=== PATIENT | male | born 1965 | race Caucasian/White ===

== ENCOUNTER 2021-02-08 12:29 | Outpatient (CLI) | payer OTHER, SELFPAY ==
--- NOTE | 2021-02-08 | ECG_ITS ---
Measurements Intervals [place] Rate: 67 P: 74 SD: 114 QRS: 93 QRSD: 113 T: 73 QT: 384 QTc: 407 Interpretive Statements SINUS RHYTHM WITH SHORT SD INTERVAL RIGHT AXIS DEVIATION INTRAVENTRICULAR CONDUCTION DELAY BORDERLINE ECG Electronically Signed On 02-08-2021 13:19:34 CDT by Dante Lee D.O.
[2021-02-08 13:17] LABS: Hematocrit 43.9 % (42.0-52.0); Hemoglobin 14.6 g/dL (14.0-18.0)
[2021-02-08 13:32] LABS: Albumin Level 4.2 g/dL (3.5-5.1); Estimated Glomerular Filt Rate > 60; Glucose 106 mg/dL (65-110)
[2021-02-08 13:42] LABS: Urine Cotinine NEGATIVE
[2021-02-09 03:14] LABS: Hemoglobin A1C 5.9 % (<5.7)
== END 2021-02-08 12:30 | disposition home or self-care (01) ==
PROVIDERS: Visit Provider Orthopaedic Surgery
DX: Z01.818 Encounter for other preprocedural examination (principal); M16.12 Unilateral primary osteoarthritis, left hip; I45.9 Conduction disorder, unspecified
CPT/HCPCS: 80307; 82040; 82565; 82947; 83036; 85014; 85018; 93005

== ENCOUNTER 2021-03-09 07:44 | Outpatient (CLI) | payer OTHER, SELFPAY ==
[2021-03-09 09:24] LABS: Basophils Absolute Auto 0.1 K/mm3 (0.0-0.1); Eosinophils Absolute Auto 0.3 K/mm3 (0-0.3); Eosinophils Percent Auto 3.3 % (0-4.4); Hematocrit 45.2 % (42.0-52.0); Immature Granulocyte Absolute 0.02 K/mm3 (0.00-0.031); Immature Granulocyte Percent A 0.3 % (0-0.5); Lymphocytes Absolute Auto 2.19 K/mm3 (0.9-3.2); Lymphocytes Percent Auto 28.6 % (18.3-44.2); Mean Corpuscular HGB Conc 33.2 g/dl (32-36); Mean Corpuscular Hemoglobin 33.5 pg (26-34); Mean Corpuscular Volume 100.9 fl (80-100); Mean Platelet Volume 9.2 fl (7.4-10.4); Monocytes Absolute Auto 0.4 K/mm3 (0.1-0.6); Monocytes Percent Auto 5.5 % (2.6-8.5); Neutrophils Absolute Auto 4.7 K/mm3 (1.3-6.7); Neutrophils Percent Auto 61.3 % (45.5-73.1); Platelet Count Result 196 k/mm3 (150-375); Red Blood Count 4.48 M/mm3 (4.6-6.20); Red Cell Distribution Width 12.5 % (11.5-14.5); White Blood Count 7.7 K/mm3 (4.5-10.0)
== END 2021-03-09 07:45 | disposition home or self-care (01) ==
LOC: ANHSURGERY 07:50
PROVIDERS: Visit Provider Orthopaedic Surgery
DX: Z01.818 Encounter for other preprocedural examination (principal); M16.12 Unilateral primary osteoarthritis, left hip
CPT/HCPCS: 36415; 85025; 87081

== ENCOUNTER → 2021-04-02 00:34 | Outpatient (CLI) | payer OTHER, SELFPAY ==
[2021-04-02 17:30] LABS: SARS-CoV-2 RNA PCR Negative
== END ==
PROVIDERS: Visit Provider Orthopaedic Surgery
DX: Z01.812 Encounter for preprocedural laboratory examination (principal); Z20.822 Contact with and (suspected) exposure to COVID-19
CPT/HCPCS: C9803; U0003; U0005

== ENCOUNTER 2021-04-05 00:14 | Day surgery (SDC) | payer OTHER, SELFPAY ==
[2021-03-09 08:41] VITALS: BP 136/71; PULSE 67; RESP 16; TEMP 36.7; O2SAT 96
--- NOTE | 2021-04-04 13:50 | P.PNAN_ITS ---
Anes - Initial Pre Proc Eval Procedure: Operation Date: 04/05/21 07:30 Proposed Procedures p Left Total Hip Arthroplasty - Geovani Edge MD Date/Time: 04/04/21 13:50 Surgeon: Geovani Edge MD Pre Op Diagnosis: primary OA lef thip Patient Data Age: 55 Gender: M Height: 1.82 m Weight: 99.1 kg Last Vital Signs Temp 36.7 C 03/09/21 08:41 Pulse 67 03/09/21 08:41 Resp 16 03/09/21 08:41 BP 136/71 03/09/21 08:41 Pulse Ox 96 03/09/21 08:41 Allergies Allergy/AdvReac Type Severity Reaction Status Date / Time hydrocodone [From Vicodin] AdvReac Severe Nausea Verified 04/05/21 06:31 morphine AdvReac Severe Nausea Verified 04/05/21 06:31 oxycodone AdvReac Severe Nausea Verified 04/05/21 06:31 Home Medications Medication Instructions Recorded Confirmed Type diphenhydramine-acetaminophen 2 tablet PO HS PRN 03/09/21 04/05/21 History [Tylenol PM Extra Strength] Patient hx anesthesia problems: none Family hx anesthesia problems: none Results Review: All pre-operative results and documents have been reviewed as part of the pre-operative evaluation. [facility] Past Medical History Medical History Arthritis of left hip History of nicotine dependence Injury of back of head (~2000) Obesity Smoker Social History Social History Smoking packs per day: 1 Smoking cigarettes per day: 20.0 Years smoked: 20 Smoking pack-years: 20.00 Smoking status: Current every day smoker Tobacco type: cigarettes Smoking end date: 01/15/21 Additional smoking assessment comments: DENIES ANY FORM OF TOBACCO USE Alcohol intake: current Drinks per week: 14 Alcohol use details: BEER Substance use: current Substance use type: marijuana Last use: 03/07/21 Living arrangements: with family Spiritual care concerns: No Anes - Eval Final PreProcedure Day of Procedure 04/04/21 13:50 Patient weight: obese Heart: regular rate and rhythm Lungs: clear to auscultation and normal air movement Airway: Mallampati scale class II Neurological: alert and oriented Last oral intake: >/= 8 hours ASA classification: III Emergent: no Anesthetic plan: proceed Anesthesia type and monitoring: general ETT Results Review: All pre-operative results and documents have been reviewed as part of the pre-operative evaluation. Informed Consent: The patient's anesthetic plan and its attendant risks and benefits were discussed with the patient/family/POA. Questions were solicited and answers provided to the satisfaction of the patient/family/POA.
[2021-04-05] VITALS (13 sets, daily range): BP systolic 113–156; BP diastolic 59–80; PULSE 61–89; RESP 12–20; TEMP 36.1–36.6; O2SAT 95–100
--- NOTE | ~2021-04-05 | XR_ITS ---
EXAMINATION: XR hip LT min 2V DATE: 04/05/2021 10:42 INDICATION: Total left hip arthroplasty. Postop. TECHNIQUE: 2 views of left hip on 3 radiographs were obtained. COMPARISON: Left hip radiographs 12/06/2020 FINDINGS: There is a total left hip arthroplasty in near-anatomic alignment. No fracture. There is ga s in the soft tissues, consistent with recent surgery. IMPRESSION: 1. Total left hip arthroplasty in near-anatomic alignment. Reviewed, dictated and finalized at location A. WARE PROJECT ENGINEER
[2021-04-05] MEDS: ACETAMINOPHEN 500 MG TABLET 1000 MG PO (06:33)
[2021-04-05] MEDS: LACTATED RINGERS 1,000 ML 30 ML IV CONT ×3 (06:50→10:53)
[2021-04-05] MEDS: TRANEXAMIC ACID 1,000MG/ISO100 1,000 MG/100 ML BAG 200 MG IVPB (06:58)
--- NOTE | 2021-04-05 07:26 | WPDHPUPDATE1 ---
History and Physical Update Update Date/Time: 04/05/21 07:26 History and Physical has been reviewed, including an updated exam of the patient. There are NO changes in the patient's condition. Risks, benefits, and alternatives have been discussed and questions answered. Patient agrees to proceed with procedure.
[2021-04-05] MEDS: ceFAZolin 2 GM/D5W 50 ML 2 GM/50 ML BAG IVPB ×3 (07:30→23:20)
[2021-04-05] MEDS: fentaNYL CITRATE INJ (*CRX) 100 MCG/2 ML VIAL 25 MCG IV PUSH ×5 (10:42→11:23)
[2021-04-05] MEDS: ONDANSETRON INJ 4 MG/2 ML VIAL IV PUSH (12:23)
[2021-04-05 12:27] LABS: Hematocrit 40.2 % (42.0-52.0); Hemoglobin 13.5 g/dL (14.0-18.0)
--- NOTE | 2021-04-05 13:02 | ADMGEN ---
This patient, Rebel Valadez, was admitted to 2 Medical Room 242-01. Patient/family oriented to hospital policies and general routines including ID bracelet, bed and alarms, visiting hours, pain management, procedures, bathroom and other care routines, personal items, smoking policy, room service/diet, and visiting hours. Information on how to activate the Rapid Response Team has been discussed. Patient/Family are encouraged to report perceived risks to care and to ask questions if they do not understand what they are told or what they should do.
--- NOTE | 2021-04-05 16:45 | W.PM.PROC2 ---
Procedure Note - Detailed Date of Procedure 04/05/21 Pre-op Diagnosis Primary OA left hip Post-op Diagnosis same Procedure Performed Left Total Hip Arthroplasty Surgeon Geovani Edge MD Trade Union Official Fatoumata Rios PA-C Anesthesia general Findings End-stage disease with large flattened femoral head. Extensive osteophytes around the head. Osteophyte removal 360?. Large lateral ileal osteophyte not in the surgical exposure. Bone quality excellent. 10 degree liner. Combined anteversion 40?. Description of Procedure The patient was given preoperative antibiotics. A general anesthetic was administered. The patient was carefully placed in the lateral decubitus position on the PEG board. The shoulders and hips were carefully positioned for component and leg length positioning reference. The hip was prepped and draped in the usual sterile fashion. A longitudinal incision was created over the posterior aspect of the greater trochanter. Careful dissection was brought down through the deep fascia with electrocautery. A minimally invasive optimized posterior approach to the hip was performed. The short external rotators and capsule were taken down in an L-shaped capsulotomy. The tissue was tagged for later repair using number 2 high strength suture. The femoral neck was measured and taken in situ. The femoral head was removed. The acetabulum was carefully exposed. The inferior capsule was released. The labrum was resected. The acetabulum was sequentially reamed to the intended cup size. The cup was impacted into position with excellent press-fit. Typical anatomic landmarks, including the bony contact points as well as the inferior transverse acetabular ligament were used to confirm cup positioning with preoperative templating. Attention was turned to the femur, which was carefully exposed. The hip was reamed and then broached sequentially. Excellent press-fit was obtained with the broach. The hip was trialed. Measurements were utilized, including the lesser trochanter as well as the center of the femoral head and the tip of the trochanter, and excellent assessment of the offset and leg lengths were confirmed. The real component was impacted into position. Trialing confirmed appropriate leg length and offset with soft tissue balancing as well apparent feel of the leg, both at the knee and the heel. Soft tissues were assessed using the the iliotibial band. Reduction of the posterior capsule and external rotators were also used as a secondary assessment. The hip was copiously irrigated with pulsatile lavage antibiotic solution periodically throughout the procedure. The real components were then assembled and reduced. The hip was stable without impingement throughout typical maneuvers, including extension, external rotation to 70 degrees, the position of sleep as well as flexion to 90 degrees with internal rotation past 35 degrees. The shake test confirmed stability without impingement. Osteophytes were removed as necessary. The short external rotators and capsule were repaired back to the posterior trochanter through drill holes. The deep fascia was repaired with running number 2 Quill suture, followed by 0 Stratafix suture and 2-0 Stratafix suture in the dermis. Steri-Strips were placed on the skin, followed by a sterile silver occlusive dressing. There were no complications. Meticulous hemostasis was maintained with the AquaMantys device. The patient was brought to the recovery room in stable condition. There were no complications. Implants The Accolade II hip stem, 127 degree size 6 , was utilized with excellent press-fit. The 60 mm Trident II acetabular component was impacted with excellent press-fit stability. 10 degree elevated liner, Alpha code G. The +0 , 36 mm Biolox ceramic femoral head was utilized. Estimated Blood Loss 200 Drains No Packing No Pathology none sent Complications No immediate complications Condition stab
[2021-04-05] MEDS: ASPIRIN 81 MG ENTERIC TABLET PO (17:52)
[2021-04-05] MEDS: SENNA/DOCUSATE SODIUM TABLET 2 TAB PO (17:52)
[2021-04-05] MEDS: FAMOTIDINE 20 MG TABLET PO (20:43)
[2021-04-06 01:26] VITALS: BP 121/82; PULSE 86; RESP 18; TEMP 36.4; O2SAT 96
[2021-04-06 05:26] VITALS: BP 133/83; PULSE 85; RESP 18; TEMP 36.8; O2SAT 95
[2021-04-06 05:47] LABS: Basophils Percent Auto 0.3 % (0.2-1.2); Eosinophils Percent Auto 0.1 % (0-4.4); Hematocrit 36.4 % (42.0-52.0); Hemoglobin 12.5 g/dL (14.0-18.0); Immature Granulocyte Absolute 0.06 K/mm3 (0.00-0.031); Immature Granulocyte Percent A 0.4 % (0-0.5); Lymphocytes Absolute Auto 2.98 K/mm3 (0.9-3.2); Lymphocytes Percent Auto 20.9 % (18.3-44.2); Mean Corpuscular HGB Conc 34.3 g/dl (32-36); Mean Platelet Volume 9.6 fl (7.4-10.4); Monocytes Absolute Auto 1.1 K/mm3 (0.1-0.6); Monocytes Percent Auto 7.6 % (2.6-8.5); Neutrophils Absolute Auto 10.1 K/mm3 (1.3-6.7); Neutrophils Percent Auto 70.7 % (45.5-73.1); Platelet Count Result 187 k/mm3 (150-375); Red Blood Count 3.79 M/mm3 (4.6-6.20); Red Cell Distribution Width 12.3 % (11.5-14.5); White Blood Count 14.3 K/mm3 (4.5-10.0)
[2021-04-06 06:10] LABS: Anion Gap 7 mmol/L (8-16); Blood Urea Nitrogen 14 mg/dL (9-20); Calcium 8.3 mg/dL (8.4-10.2); Carbon Dioxide 26 mmol/L (22-30); Chloride 100 mmol/L (98-107); Estimated CRCL calculation 97 ml/min; Estimated Glomerular Filt Rate > 60; Glucose 143 mg/dL (65-110); Potassium 4.1 mmol/L (3.4-5.0); Sodium 133 mmol/L (137-145)
[2021-04-06] MEDS: ceFAZolin 2 GM/D5W 50 ML 2 GM/50 ML BAG IVPB (06:30)
[2021-04-06 08:00] VITALS: BP 127/80; PULSE 76; RESP 18; TEMP 36.9; O2SAT 100
--- NOTE | 2021-04-06 08:30 | PCOTNOTE ---
Attempted to see patient this am, however patient declined. Pt reported, No, I showered yesterday and put these pants on, so I think I'm good. I've had a sock thing at home for a while now, and I also have my . I'm feeling pretty comfortable. My has had two hip replacements, so I think I'm in good hands.
--- NOTE | 2021-04-06 08:34 | PM.DS ---
DS: Admitting Diagnosis Discharge Date 04/06/21 Admitting Diagnosis OA Left hip DS: Discharge Diagnosis Discharge Diagnosis (1) Status post total hip replacement, left: Code(s): Z96.642 - Presence of left artificial hip joint Status: Acute Assessment and Plan: Postop day 1: Total hip arthroplasty Left. Patient tolerated procedure well. No complications. Pain manageable with pain medication. No numbness or tingling. We had a lengthy discussion regarding postoperative wound care, limitations, expectations, and exercises. Patient shows good understanding. Patient has had initial physical therapy and is tolerating it well. Patient is very motivated and does not want pain medications. He may call if he needs a prescription. Due to hypertrophic bone formation intraoperatively, will put patient on indomethacin for 6 weeks to decrease risk of HO forming. This will also help with pain control. DVT prophylaxis: 81 mg baby aspirin b.i.d. for 14 days. Short frequent walks. Compression socks for 3 days. Pain medication: Tylenol (no more than 3,000 milligrams per day). Patient has followup appointment with Dr. Edge in 3 weeks DS: Summary Hospital Course Reason for hospitalization: Total hip arthroplasty Hospital Course: Patient tolerated procedure well. Has had initial PT/OT. Status at Discharge Functional status at discharge: uses cane/walker Overall status at discharge: patient is progressing back to baseline Time Spent with Patient Time attestation: Total time spent providing and/or coordinating discharge services: Exam Narrative: Overweight 55 y/o Male. Resting comfortably in bed. Wearing compression socks bilaterally. Dressing dry and intact with no drainage. Moderate swelling. Mild ecchymosis. No erythema. No hematoma. Range of motion limited due to pain. Calf nontender. Thigh nontender. Neurologic status intact. No varicosities. Distal pulses palpable. DS: Data Data Completed and Pending Labs on day of discharge: Labs from last 24 hours 04/06/21 04/06/21 04/05/21 05:06 05:06 12:15 WBC 14.3 H RBC 3.79 L Hgb 12.5 L 13.5 L Hct 36.4 L 40.2 L MCV 96.0 MCH 33.0 MCHC 34.3 RDW 12.3 Plt Count 187 MPV 9.6 Immature Gran % (Auto) 0.4 Neut % (Auto) 70.7 Lymph % (Auto) 20.9 Lea % (Auto) 7.6 Eos % (Auto) 0.1 Baso % (Auto) 0.3 Lymph # (Auto) 2.98 Lea # (Auto) 1.1 H Eos # (Auto) 0.0 Baso # (Auto) 0.0 Abs Immat Gran (auto) 0.06 H Absolute Neuts (auto) 10.1 H Absolute Nucleated RBC 0.0 Nucleated RBC % 0.0 Sodium 133 L Potassium 4.1 Chloride 100 Carbon Dioxide 26 Anion Gap 7 L BUN 14 Creatinine 0.90 Estim Creat Clear Calc 97 Estimated GFR > 60 Glucose 143 H Calcium 8.3 L Discharge Plan Discharge Patient Disposition: Home, Self-Care Discharge Instructions: See green instruction sheet Patient Instructions: Pain Management (DC), Precautions after Total Joint Replacement Surgery (DC), Total Hip Replacement (DC) Stand Alone Forms: General Discharge Instructions Follow-up/Referrals: Fatoumata Rios PA [Physician Manager Heavy Duty] - Discharge Medications: New aspirin 81 mg tablet,delayed release (DR/EC) 81 mg PO BID 14 Days Qty: 28 RF: 0 indomethacin 75 mg capsule, extended release 75 mg PO BID 42 Days Qty: 84 RF: 0 Continued diphenhydramine-acetaminophen [Tylenol PM Extra Strength] 25-500 mg Tablet 2 tablet PO HS PRN (Reason: Pain) RF: 0
--- NOTE | 2021-04-06 09:44 | WPDANESPN ---
Anes - Prog Note Post-Op Date/Time: 04/06/21 09:44 Cardiovascular status: normal Respiratory status: normal Airway patency: baseline Mental status: baseline Post-Op hydration status: normal Vital Signs: Last Vital Signs Temp 98.4 F 04/06/21 08:00 Pulse 76 04/06/21 08:00 Resp 18 04/06/21 08:00 BP 127/80 04/06/21 08:00 Pulse Ox 100 04/06/21 08:00 Pain Score (VAS): 05/30 I/O: Intake & Output 04/05/21 04/06/21 04/06/21 23:59 07:59 15:59 Intake Total 500 500 360 Balance 500 500 360 Laboratory Tests 04/06/21 05:06 04/06/21 05:06 04/05/21 04/06/21 04/06/21 12:15 05:06 05:06 WBC 14.3 H RBC 3.79 L Hgb 13.5 L 12.5 L Hct 40.2 L 36.4 L MCV 96.0 MCH 33.0 MCHC 34.3 RDW 12.3 Plt Count 187 MPV 9.6 Immature Gran % (Auto) 0.4 Neut % (Auto) 70.7 Lymph % (Auto) 20.9 Reagan % (Auto) 7.6 Eos % (Auto) 0.1 Baso % (Auto) 0.3 Lymph # (Auto) 2.98 Reagan # (Auto) 1.1 H Eos # (Auto) 0.0 Baso # (Auto) 0.0 Abs Immat Gran (auto) 0.06 H Absolute Neuts (auto) 10.1 H Absolute Nucleated RBC 0.0 Nucleated RBC % 0.0 Sodium 133 L Potassium 4.1 Chloride 100 Carbon Dioxide 26 Anion Gap 7 L BUN 14 Creatinine 0.90 Estim Creat Clear Calc 97 Estimated GFR > 60 Glucose 143 H Calcium 8.3 L Patient Feedback: Patient satisfied with anesthetic care.
== END 2021-04-06 10:00 | disposition home or self-care (01) ==
LOC: ANHSURGERY 11:24 → ANH2MED 11:44
PROVIDERS: Physician Assistant Surgical; Visit Provider Orthopaedic Surgery
PROC: (CPT 27130; principal; 2021-04-05 07:30)
DX: M16.12 Unilateral primary osteoarthritis, left hip (principal); F17.210 Nicotine dependence, cigarettes, uncomplicated; F12.90 Cannabis use, unspecified, uncomplicated; E66.9 Obesity, unspecified; Z68.30 Body mass index [BMI] 30.0-30.9, adult
CPT/HCPCS: 27130; 36415; 73502; 80048; 85014; 85018; 85025; 86850; 86900; 86901; 87081; 97110; 97116; 97161; 97165; A9270; C1776; C9803; J0131; J0171; J0330; J0690; J1100; J1170; J1885; J2250; J2370; J2405; J2704; J2795; J3010; J7120; U0003; U0005

== ENCOUNTER 2022-05-19 18:32 | Emergency (ER) | payer OTHER, SELFPAY ==
--- NOTE | ~2022-05-19 | XR_ITS ---
EXAMINATION: XR chest 2V DATE: 05/19/2022 19:11 INDICATION: Shortness of breath. TECHNIQUE: Frontal and lateral views of the chest were obtained on 3 radiographs. COMPARISON: Chest 2 views 01/25/2012 FINDINGS: The chest demonstrates clear lungs without pneumonia, pleural effusion, or pneumothorax. Th e heart size is normal. There is a chronic compression fracture in lower thoracic spine. IMPRESSION: 1. No acute cardiopulmonary disease. Reviewed, dictated and finalized at location A. ITAL RECEIVING CLERK
--- NOTE | 2022-05-19 18:33 | ECG_ITS ---
Measurements Intervals [place] Rate: 94 P: 85 [place]: 132 QRS: 98 QRSD: 109 T: 73 QT: 349 QTc: 436 Interpretive Statements SINUS RHYTHM WITH FREQUENT VENTRICULAR PREMATURE COMPLEXES POSSIBLE RIGHT ATRIAL ENLARGEMENT [0.25mV P WAVE] POSSIBLE RIGHT VENTRICULAR HYPERTROPHY [SOME/ALL OF: PROMINENT R IN V1, LATE TRANSITION, RAD, ELZIABETH, SSS] COMPARED TO ECG 02/08/2021 13:05:24 VENTRICULAR ECTOPIC ACTIVITY IS NOW PRESENT Electronically Signed On 05-20-2022 9:44:10 TERRITORY BUSINESS MANAGER by Antwon Toney M.D.
[2022-05-19 18:34] VITALS: BP 146/79; PULSE 94; RESP 18; TEMP 36.2; O2SAT 95
[2022-05-19 18:50] LABS: Basophils Absolute Auto 0.1 K/mm3 (0.0-0.1); Basophils Percent Auto 1.3 % (0.2-1.2); Eosinophils Absolute Auto 0.6 K/mm3 (0-0.3); Eosinophils Percent Auto 5.8 % (0-4.4); Hematocrit 46.1 % (42.0-52.0); Hemoglobin 15.5 g/dL (14.0-18.0); Immature Granulocyte Absolute 0.04 K/mm3 (0.00-0.031); Immature Granulocyte Percent A 0.4 % (0-0.5); Lymphocytes Absolute Auto 3.65 K/mm3 (0.9-3.2); Mean Corpuscular HGB Conc 33.6 g/dl (32-36); Mean Corpuscular Hemoglobin 33.3 pg (26-34); Mean Corpuscular Volume 98.9 fl (80-100); Mean Platelet Volume 9.2 fl (7.4-10.4); Monocytes Absolute Auto 0.6 K/mm3 (0.1-0.6); Monocytes Percent Auto 6.3 % (2.6-8.5); Neutrophils Absolute Auto 4.6 K/mm3 (1.3-6.7); Neutrophils Percent Auto 48.2 % (45.5-73.1); Platelet Count Result 202 k/mm3 (150-375); Red Blood Count 4.66 M/mm3 (4.6-6.20); Red Cell Distribution Width 12.3 % (11.5-14.5); White Blood Count 9.6 K/mm3 (4.5-10.0)
[2022-05-19 18:59] LABS: Alanine Aminotransferase 39 U/L (6-50); Albumin Level 4.1 g/dL (3.5-5.1); Alkaline Phosphatase 76 U/L (38-126); Anion Gap 8 mmol/L (8-16); Aspartate Amino Transferase 30 U/L (17-59); Bilirubin,Total 0.2 mg/dL (0.2-1.3); Blood Urea Nitrogen 18 mg/dL (9-20); Calcium 8.8 mg/dL (8.4-10.2); Carbon Dioxide 27 mmol/L (22-30); Chloride 104 mmol/L (98-107); Estimated CRCL calculation 98 ml/min; Estimated Glomerular Filt Rate > 60; Glucose 230 mg/dL (65-110); Potassium 4.1 mmol/L (3.4-5.0); Sodium 139 mmol/L (137-145)
--- NOTE | 2022-05-19 20:27 | PC.NURSE ---
Patient left without seeing a provider at approx 2025. Patient states, I have something at home that I need to take care of and I will come back tonight or tomorrow morning to be seen by a doctor and to get the treatment that I need if my test results show that I need any. This nurse explained risks versus benefits of staying and leaving the emergency department. Patient verbalized understanding and denied any further questions
== END 2022-05-19 20:27 | disposition left against medical advice (07) ==
LOC: ANHED 20:31
PROVIDERS: Emergency Provider Emergency Medicine
DX: R06.02 Shortness of breath (principal)
CPT/HCPCS: 36415; 71046; 80053; 85025; 93005; 99199

== ENCOUNTER 2022-05-20 03:49 | Emergency (ER) | payer OTHER, SELFPAY ==
[2022-05-20] VITALS (13 sets, daily range): BP systolic 129–148; BP diastolic 71–114; PULSE 58–70; RESP 10–24; TEMP 37; O2SAT 94–98
--- NOTE | 2022-05-20 04:09 | ECG_ITS ---
Measurements Intervals [place] Rate: 62 P: 63 [place]: 118 QRS: 89 QRSD: 118 T: 71 QT: 422 QTc: 431 Interpretive Statements SINUS RHYTHM WITH SHORT [place] INTERVAL MODERATE INTRAVENTRICULAR CONDUCTION DELAY [110+ ms QRS DURATION] ABNORMAL ECG COMPARED TO ECG 05/19/2022 18:42:40 VENTRICULAR ECTOPIC ACTIVITY IS NO LONGER SEEN Electronically Signed On 05-20-2022 9:50:28 SWING SAW OPERATOR by Antwon Toney M.D.
--- NOTE | 2022-05-20 05:22 | ED.SOB ---
HPI - SOB/Dyspnea General Chief Complaint: Shortness of Breath/Dyspnea Stated Complaint: sob Time Seen by Provider: 05/20/22 04:13 Source: patient Mode of arrival: ambulatory Limitations: no limitations History of Present Illness HPI Narrative: This is a 56 year old male who presents for evaluation of shortness of breath. He states he stopped smoking 3 weeks ago and he has been using a vape. Yesterday, he states he was cooking with air fryer and significant amount of smoke developed through out the house. He states he developed shortness of breath. He states he was not having any chest pain. His shortness of breath improved but he came to ER on yesterday for evaluation. He was unable to stay long enough to be evaluated but he had labs and chest xray done. He is here today to make sure if there are additional treatments needed base on his test yesterday. He reports mild cough but he denies chest pain, nausea, vomiting, fever, leg swelling. He denies any medical problems. Related Data Allergies Allergy/AdvReac Type Severity Reaction Status Date / Time hydrocodone [From Vicodin] AdvReac Severe Nausea Verified 05/20/22 04:09 morphine AdvReac Severe Nausea Verified 05/20/22 04:09 oxycodone AdvReac Severe Nausea Verified 05/20/22 04:09 Review of Systems Constitutional: Constitutional: Denies weakness Cardiovascular: Cardiovascular: Denies syncope, Denies rapid heart rate, Denies irregular heart rhythm, Denies leg edema and Denies dyspnea Respiratory: Respiratory: Denies chest congestion, Reports cough, Denies hemoptysis, Denies excessive phlegm production and Reports dyspnea Gastrointestinal: Gastrointestinal: Denies abdominal pain, Denies hematochezia, Denies diarrhea and Denies vomiting Genitourinary: Genitourinary: Denies hematuria, Denies dysuria, Denies penile discharge and Denies testicular pain Musculoskeletal: Musculoskeletal: Denies joint swelling, Denies loss of height and Denies muscle weakness Neurologic: Denies syncope, Denies focal weakness and Denies weakness PMFSH Past Medical History Medical History Arthritis of left hip History of nicotine dependence Injury of back of head (~2000) Obesity Smoker Surgical History Surgical History History of total left hip replacement (~04/05/21) Social History Social History Smoking packs per day: 1 Smoking cigarettes per day: 20.0 Years smoked: 20 Smoking pack-years: 20.00 Smoking status: Former smoker Tobacco type: cigarettes Smoking end date: 01/15/21 Additional smoking assessment comments: DENIES ANY FORM OF TOBACCO USE Alcohol intake: never Drinks per week: 14 Alcohol use details: BEER Substance use: current Substance use type: marijuana Last use: 04/04/21 Spiritual care concerns: No Exam Narrative: GENERAL: Well-appearing, well-nourished, and in no acute distress. HEAD: Normocephalic, atraumatic EYES: PERRLA and EOMI, conjunctiva clear without discharge THROAT:Mucous membranes moist, Oropharynx normal without erythema, exudate, peritonsillar swelling or fluctuance NECK: Supple, without lymphadenopathy or mass RESPIRATORY: No respiratory distress, Airway patent, Respirations non-labored, Clear to auscultation without rales, rhonchi or wheeze HEART: Regular rate and rhythm. No murmur heard. Normal peripheral pulses. ABDOMEN: Soft, nontender, nondistended, normal active bowel sounds. No masses. No rebound or guarding, No organomegaly. EXTREMITIES: No edema, normal strength with full range of motion. SKIN: Warm, dry, normal color without rash NEURO: Alert and oriented x3. CN 2-12 grossly intact. No focal deficits. PSYCH: Normal mood and affect. Neuro: Speech: No Abnormal speech present Course Reevaluation(s) Reevaluation #1: I Reviewed labs and xray from yesterday. They are unremarkable. He will be discharge w
== END 2022-05-20 05:45 | disposition home or self-care (01) ==
PROVIDERS: Emergency Provider General Practice
DX: R06.00 Dyspnea, unspecified (principal); M16.11 Unilateral primary osteoarthritis, right hip; E66.9 Obesity, unspecified; Z68.30 Body mass index [BMI] 30.0-30.9, adult; F17.290 Nicotine dependence, other tobacco product, uncomplicated; I45.9 Conduction disorder, unspecified
CPT/HCPCS: 93005; 99283

== ENCOUNTER 2022-07-02 08:15 | Emergency (ER) | payer OTHER, SELFPAY ==
[2022-07-02 08:24] VITALS: BP 130/70; PULSE 73; RESP 16; TEMP 36.5; O2SAT 98
--- NOTE | 2022-07-02 08:36 | ED.URI ---
HPI - URI/Sore Throat General Chief Complaint: Upper Respiratory Infection Stated Complaint: uri Time Seen by Provider: 07/02/22 08:39 Source: patient and RN notes reviewed Mode of arrival: ambulatory Limitations: no limitations History of Present Illness HPI Narrative: 56-year-old male history of cigarette smoking presents with concern for one-week history of nasal congestion sinus pressure, cough. Reports taking [id number] medications without relief. Reports he has an albuterol inhaler that he has been using with little relief. He last used on Sunday MD elicited complaint: cough and nasal congestion Related Data Allergies Allergy/AdvReac Type Severity Reaction Status Date / Time hydrocodone [From Vicodin] AdvReac Severe Nausea Verified 07/02/22 08:29 morphine AdvReac Severe Nausea Verified 07/02/22 08:29 oxycodone AdvReac Severe Nausea Verified 07/02/22 08:29 Review of Systems Review of Systems: CONSTITUTIONAL: Denies malaise, chills, sweats, or fever. EYES: Denies visual changes, redness, or discharge. ENT: Reports rhinorrhea, congestion. Denies sinus pain, otalgia and sore throat. CARDIOVASCULAR: Denies chest pain, palpitations, or edema. RESPIRATORY: Reports cough. Denies dyspnea. GASTROINTESTINAL: Denies abdominal pain, nausea, vomiting, diarrhea SKIN: Denies rash or itching. MUSCULOSKELETAL: Denies myalgia. NEUROLOGIC: Denies headache. All systems reviewed & are unremarkable except as noted in HPI and below PMFSH Past Medical History Medical History Arthritis of left hip History of nicotine dependence Injury of back of head (~2000) Obesity Smoker Surgical History Surgical History History of total left hip replacement (~04/05/21) Social History Social History Smoking packs per day: 1 Smoking cigarettes per day: 20.0 Years smoked: 20 Smoking pack-years: 20.00 Smoking status: Former smoker Tobacco type: cigarettes Smoking end date: 01/15/21 Additional smoking assessment comments: DENIES ANY FORM OF TOBACCO USE Alcohol intake: never Drinks per week: 14 Alcohol use details: BEER Substance use: current Substance use type: marijuana Last use: 04/04/21 Living arrangements: with family Spiritual care concerns: No Comments At time of signature, agree with nursing past medical, surgical, social and family history. There is no relevant family history pertinent to the presenting complaint Exam Narrative: GENERAL: Well-appearing, well-nourished, and in no acute distress. HEAD: Normocephalic EYES: PERRLA, conjunctivae clear ENT: Nares clear, turbinates edematous and erythematous, clear discharge. Mucous membranes moist. TM pearly jc with dull light reflex bilaterally; no tragal tenderness. Oropharynx not erythematous without lesions. Tonsils not enlarged and without exudate, no drooling, no hoarseness, no trismus, uvula midline. NECK: Supple. No lymphadenopathy CHEST: Scattered expiratory wheeze, otherwise Clear to auscultation, breath sounds equal. No rhonchi, rales, or stridor. No respiratory distress, speaks in full sentences. HEART: Regular rate and rhythm. No murmur heard. SKIN: Warm, dry, no rash. NEURO: Alert and oriented x3. PSYCH: Normal mood and affect Course Course Emergency Course: Patient is aware of diagnosis, understands and agrees to treatment plan. Anticipatory guidance given. Patient agrees to follow-up as directed and is aware of reasons to seek care at the emergency department. Portions of this record may have been created with voice recognition software Level of Care: Express Care Visit Vital Signs Vital signs: Vital Signs Temperature 97.7 F 07/02/22 08:24 Pulse Rate 73 07/02/22 08:24 Respiratory Rate 16 07/02/22 08:24 Blood Pressure 130/70 07/02/22 08:24 Pulse Oximetry 98 07/02/22 08:24 Oxygen Delivery Room Air 02
== END 2022-07-02 08:54 | disposition home or self-care (01) ==
PROVIDERS: Emergency Provider Nurse Practitioner
DX: J40 Bronchitis, not specified as acute or chronic (principal); Z87.891 Personal history of nicotine dependence
CPT/HCPCS: 99213; G0463

== ENCOUNTER 2022-09-10 05:09 | Emergency (ER) | payer OTHER, SELFPAY ==
--- NOTE | ~2022-09-10 | XR_ITS ---
EXAMINATION: XR chest 2V DATE: 09/10/2022 06:25 INDICATION: Right chest pain TECHNIQUE: PA and lateral views of the chest are obtained. COMPARISON: 05/19/2022 FINDINGS: The lungs are free of acute opacities. No pleural effusion or pneumothorax. The cardiomedia stinal silhouette is normal. There is moderate thoracic spondylosis. IMPRESSION: 1. No acute cardiopulmonary abnormality. Reviewed, dictated and finalized at location A.
--- NOTE | ~2022-09-10 | CT_ITS ---
EXAMINATION: CT abdomen pelvis w con INDICATION: Right-sided abdominal pain TECHNIQUE: Computed tomographic images of the abdomen and pelvis were obtained after the administrati on of 100 cc of Omnipaque 350 intravenous contrast. The dose-length product (DLP) was 1491.09 mGy-cm. Automated exposure control and iterative reconstruction technique were employed. COMPARISON: 12/28/2018 FINDINGS: The lung bases are clear. The heart size is normal. The liver, spleen, pancreas, gallbladde r, and adrenal glands are normal. There is a 10 mm cyst of the left kidney. The right kidney is unrem arkable. No stones are identified in the kidneys, ureters, or bladder. No hydronephrosis or hydrouret er. There is calcified atherosclerosis of the aorta and many of the other arteries. No pathologically enlarged abdominal or pelvic lymph nodes are identified. No free intraperitoneal gas or evidence of bowel obstruction. A large volume of colonic stool is present. There is formed stool in the nondisten ded distal small bowel, consistent with slow transit. Changes of left hip arthroplasty are noted. The re is mild lumbar spondylosis. There is a chronic compression fracture of T12. IMPRESSION: 1. Constipation. Reviewed, dictated and finalized at location A. IMPRESSION: 1. Constipation.
[2022-09-10 05:14] VITALS: BP 151/83; PULSE 66; RESP 16; TEMP 36.8; O2SAT 97
--- NOTE | 2022-09-10 05:52 | ED.GENADULT ---
HPI - General Adult General Chief complaint: Back Pain/Injury Stated complaint: low back pain Time Seen by Provider: 09/10/22 05:48 History of Present Illness HPI narrative: 48-year-old male history of kidney stones presented with right flank pain. Per patient, for the last week he has been having dull right flank pain, nonradiating. He denied trauma, dysuria, hematuria, nausea, vomiting, abdominal pain, chest pain, shortness of breath, cough, sick contacts, diarrhea. Past medical history: Denied Past surgical history: Denied Medications: Denied Allergies: Opioids Social: Smoking, alcohol, denied recreational drugs Related Data Allergies Allergy/AdvReac Type Severity Reaction Status Date / Time hydrocodone [From Vicodin] AdvReac Severe Nausea Verified 09/10/22 05:21 morphine AdvReac Severe Nausea Verified 09/10/22 05:21 oxycodone AdvReac Severe Nausea Verified 09/10/22 05:21 Review of Systems Review of Systems: See HPI [facility] Past Medical History Medical History Arthritis of left hip History of nicotine dependence Injury of back of head (~2000) Obesity Smoker Surgical History Surgical History History of total left hip replacement (~04/05/21) Social History Social History Smoking packs per day: 1 Smoking cigarettes per day: 20.0 Years smoked: 20 Smoking pack-years: 20.00 Smoking status: Former smoker Tobacco type: cigarettes Smoking end date: 01/15/21 Additional smoking assessment comments: DENIES ANY FORM OF TOBACCO USE Alcohol intake: never Drinks per week: 14 Alcohol use details: BEER Substance use: current Substance use type: marijuana Last use: 04/04/21 Living arrangements: with family Spiritual care concerns: No Exam Narrative: APPEARANCE: Alert, calm and cooperative, no acute distress, phonating, sitting comfortably during visit HEAD: atraumatic EYES: Pupils equal round an reactive to light, extra ocular movements intact, no conjunctival injection NOSE: Normal no drainage NECK: Supple, without meningismus RESPIRATORY: Lungs clear to auscultation bilaterally, no wheezes/rales/rhonchi, breathing comfortably CARDIOVASCULAR: Regular rate and rhythm, no visible jugular venous distension ABDOMINAL: Soft, nontender, nondistended, no guarding, no rebound/peritoneal signs, no costovertebral tenderness to palpation BACK: no midline tenderness to palpation, no step offs EXTREMITIES: No edema, palpable peripheral pulses, warm, well perfused, no tenderness to bilateral calves. NEURO: Alert, moving all extremities symmetrically, with steady gait SKIN:: Warm, dry. Normal color PSYCHIATRIC: Normal affect/mood Course Vital Signs Vital signs: Vital Signs Temperature 98.2 F 09/10/22 05:14 Pulse Rate 66 09/10/22 05:14 Respiratory Rate 16 09/10/22 05:14 Blood Pressure 151/83 H 09/10/22 05:14 Pulse Oximetry 97 09/10/22 05:14 Oxygen Delivery Room Air 09/10/22 05:14 Temperature 98.2 F 09/10/22 05:14 Pulse Rate 66 09/10/22 06:00 Respiratory Rate 16 09/10/22 06:00 Blood Pressure 122/78 09/10/22 06:00 Pulse Oximetry 98 09/10/22 06:00 Oxygen Delivery Room Air 09/10/22 05:14 Medical Decision Making [facility] Narrative Medical decision making narrative: Medical Decision Making 56-year-old male presents with 1 week of right flank pain, nonradiating. Denied fevers chills, nausea, vomiting, dysuria, hematuria. Physical exam sitting comfortably, no midline tenderness to his back, abdomen soft, breathing comfortably, vitals within normal limits. Differential diagnosis includes but not limited to: Pyelonephritis versus nephrolithiasis versus urinary tract infection. AAA versus aortic dissection considered, unlikely at this time given well appearance, vitals within normal limits. Blood work reviewed, unremarkable. Chest x-ray clear. Pat
[2022-09-10 05:57] VITALS: O2SAT 97
[2022-09-10 06:00] VITALS: BP 122/78; PULSE 66; RESP 16; O2SAT 98
[2022-09-10] MEDS: ACETAMINOPHEN 500 MG TABLET 1000 MG PO (06:02)
[2022-09-10] MEDS: KETOROLAC 30 MG/ML VIAL (*BKC) IV PUSH (06:03)
[2022-09-10] MEDS: SODIUM CHLORIDE 0.9% IV 1,000 ML 999 ML IV CONT (06:05)
[2022-09-10 06:14] LABS: Basophils Absolute Auto 0.1 K/mm3 (0.0-0.1); Eosinophils Absolute Auto 0.5 K/mm3 (0-0.3); Eosinophils Percent Auto 6.3 % (0-4.4); Hematocrit 42.9 % (42.0-52.0); Hemoglobin 14.3 g/dL (14.0-18.0); Immature Granulocyte Absolute 0.02 K/mm3 (0.00-0.031); Immature Granulocyte Percent A 0.3 % (0-0.5); Mean Corpuscular HGB Conc 33.3 g/dl (32-36); Mean Corpuscular Hemoglobin 32.4 pg (26-34); Mean Corpuscular Volume 97.1 fl (80-100); Mean Platelet Volume 9.7 fl (7.4-10.4); Monocytes Absolute Auto 0.6 K/mm3 (0.1-0.6); Monocytes Percent Auto 7.3 % (2.6-8.5); Neutrophils Absolute Auto 3.9 K/mm3 (1.3-6.7); Neutrophils Percent Auto 51.1 % (45.5-73.1); Platelet Count Result 190 k/mm3 (150-375); Red Blood Count 4.42 M/mm3 (4.6-6.20); Red Cell Distribution Width 12.7 % (11.5-14.5); White Blood Count 7.6 K/mm3 (4.5-10.0)
[2022-09-10 06:20] LABS: Appearance Urine Clear (Clear); Bilirubin Urine Negative (Negative); Blood Urine Negative (Negative); Color Urine Yellow (Yellow); Glucose Urine UA Negative (Negative); Ketones Urine Negative (Negative); Leukocyte Esterase Ur Negative LEU/UL (Negative); Nitrate Urine Negative (Negative); Protein Urine Negative (Negative); Specific Grav Ur 1.026 (1.001-1.035); pH Urine 5.5 (5.0-9.0)
[2022-09-10 06:24] LABS: Alanine Aminotransferase 29 U/L (6-50); Albumin Level 4.3 g/dL (3.5-5.1); Alkaline Phosphatase 78 U/L (38-126); Anion Gap 4 mmol/L (8-16); Aspartate Amino Transferase 26 U/L (17-59); Bilirubin,Total 0.5 mg/dL (0.2-1.3); Blood Urea Nitrogen 20 mg/dL (9-20); Calcium 8.7 mg/dL (8.4-10.2); Carbon Dioxide 30 mmol/L (22-30); Chloride 105 mmol/L (98-107); Estimated CRCL calculation 98 ml/min; Estimated Glomerular Filt Rate > 60; Glucose 136 mg/dL (65-110); Lipase 54 U/L (23-300); Potassium 4.2 mmol/L (3.4-5.0); Sodium 139 mmol/L (137-145)
[2022-09-10 06:44] LABS: Add Urine Microscopic? NO
[2022-09-10 07:02] VITALS: BP 126/82; PULSE 52; RESP 16; O2SAT 100
[2022-09-10 09:00] VITALS: BP 164/82; PULSE 54; RESP 16; O2SAT 98
== END 2022-09-10 09:00 | disposition home or self-care (01) ==
PROVIDERS: Emergency Provider Emergency Medicine
DX: K59.00 Constipation, unspecified (principal); Z87.891 Personal history of nicotine dependence
CPT/HCPCS: 36415; 71046; 74177; 80048; 80076; 81003; 83605; 83690; 85025; 96361; 96374; 99284; A9270; J1885; J7030; Q9967

== ENCOUNTER 2023-11-12 08:52 | Emergency (ER) | payer OTHER, SELFPAY ==
[2023-11-12 09:01] VITALS: BP 150/82; PULSE 69; RESP 16; TEMP 36.6; O2SAT 99
--- NOTE | 2023-11-12 09:32 | ED.UPPEXIN ---
HPI - Extremity Injury (Upper) General Chief Complaint: Extremity Injury, Upper Stated Complaint: Right Wrist Pain Time Seen by Provider: 11/12/23 09:23 Source: patient and RN notes reviewed Mode of arrival: ambulatory Limitations: no limitations History of Present Illness HPI narrative: Patient presents today complaining of a 10 day history of right wrist pain. Denies any injury or trauma. Denies numbness or tingling in the arm or hand. Pain increases with movement, lifting. Currently rates his pain 7/10 and has been wearing an OTC brace without much relief. Patient is a optimization specialist. Related Data Allergies Allergy/AdvReac Type Severity Reaction Status Date / Time hydrocodone [From Vicodin] AdvReac Severe Nausea Verified 09/10/22 05:21 morphine AdvReac Severe Nausea Verified 09/10/22 05:21 oxycodone AdvReac Severe Nausea Verified 09/10/22 05:21 Review of Systems Review of Systems: CONSTITUTIONAL: Denies body aches, fever, chills, or sweats. EYES: Denies visual changes, redness, or discharge. ENT: Denies rhinorrhea, congestion, sore throat, or otalgia. CARDIOVASCULAR: Denies chest pain, palpitations, or edema. RESPIRATORY: Denies cough or dyspnea. GASTROINTESTINAL: Denies abdominal pain, nausea, vomiting, or diarrhea. GENITOURINARY: Denies dysuria or hematuria. SKIN: Denies rash, itching, or wounds. MUSCULOSKELETAL: Denies back pain, or myalgia.+ right wrist pain NEUROLOGIC: Denies headache, numbness, tingling, or weakness. PSYCH: Denies depression or anxiety. [facility] Past Medical History Medical History Arthritis of left hip History of nicotine dependence Injury of back of head (~2000) Obesity Smoker Surgical History Surgical History History of total left hip replacement (~04/05/21) Social History Social History (Updated 11/12/23 @ 09:35 by Azra Roman, AIR CONDITIONING EQUIPMENT MECHANIC, ) Smoking packs per day: 1 Smoking cigarettes per day: 20.0 Years smoked: 20 Smoking pack-years: 20.00 Smoking status: Current every day smoker Tobacco type: cigarettes Alcohol intake: current Drinks per week: 14 Alcohol use details: BEER Substance use: current Substance use type: marijuana Last use: 04/04/21 Living arrangements: with family Spiritual care concerns: No Comments At time of signature, I have reviewed and agree with nursing past medical, surgical, social and family history unless otherwise noted. Please see nursing chart for further information. There is no relevant family history pertinent to the presenting complaint Exam Narrative: GENERAL: Well-appearing, well-nourished, and in no acute distress. HEAD: Normocephalic, atraumatic. EYES: EOMI. No redness or drainage. Conjunctivae normal. ENT: Mucous membranes pink and moist. NECK: Normal AROM. CHEST: No respiratory distress. EXTREMITIES: Right wrist: Patient localizes his pain to the distal ulna with mild tenderness to palpation. No edema, ecchymosis, erythema noted. Pain with P ROM in all directions. Distal sensation intact. Capillary refill. Radial pulse normal.. SKIN: Warm, dry, no rash. Capillary refill normal. Normal skin turgor. NEURO: No focal deficits. Alert and oriented x3. Gait steady. PSYCH: Normal affect. No signs of depression or anxiety. Course Course Level of Care: Express Care Visit Vital Signs Vital signs: Vital Signs Temperature 97.9 F 11/12/23 09:01 Pulse Rate 69 11/12/23 09:01 Respiratory Rate 16 11/12/23 09:01 Blood Pressure 150/82 H 11/12/23 09:01 Pulse Oximetry 99 11/12/23 09:01 Oxygen Delivery Room Air 11/12/23 09:01 Temperature 97.9 F 11/12/23 09:01 Pulse Rate 69 11/12/23 09:01 Respiratory Rate 16 11/12/23 09:01 Blood Pressure 150/82 H 11/12/23 09:01 Pulse Oximetry 99 11/12/23 09:01 Oxygen Delivery Room Air 11/12/23 09:01 Reviewed MDM - Extremity Injury (Upper) MDM Narrative
== END 2023-11-12 09:47 | disposition home or self-care (01) ==
PROVIDERS: Emergency Provider Nurse Practitioner
DX: M77.8 Other enthesopathies, not elsewhere classified (principal); F17.210 Nicotine dependence, cigarettes, uncomplicated; F12.90 Cannabis use, unspecified, uncomplicated; E66.9 Obesity, unspecified; Z68.31 Body mass index [BMI] 31.0-31.9, adult; M16.12 Unilateral primary osteoarthritis, left hip; Z96.642 Presence of left artificial hip joint
CPT/HCPCS: 99213; G0463

== ENCOUNTER 2024-07-11 11:09 | Outpatient (CLI) | payer OTHER, SELFPAY ==
[2024-07-11 11:32] LABS: Basophils Absolute Auto 0.1 K/mm3 (0.0-0.1); Basophils Percent Auto 1.1 % (0.2-1.2); Eosinophils Absolute Auto 0.4 K/mm3 (0-0.3); Eosinophils Percent Auto 4.6 % (0-4.4); Hemoglobin 16.1 g/dL (14.0-18.0); Immature Granulocyte Absolute 0.02 K/mm3 (0.00-0.031); Immature Granulocyte Percent A 0.3 % (0-0.5); Lymphocytes Absolute Auto 2.85 K/mm3 (0.9-3.2); Lymphocytes Percent Auto 36.1 % (18.3-44.2); Mean Corpuscular HGB Conc 34.3 g/dl (32-36); Mean Corpuscular Hemoglobin 32.9 pg (26-34); Mean Corpuscular Volume 95.9 fl (80-100); Mean Platelet Volume 10.3 fl (7.4-10.4); Monocytes Absolute Auto 0.4 K/mm3 (0.1-0.6); Monocytes Percent Auto 5.6 % (2.6-8.5); Neutrophils Absolute Auto 4.1 K/mm3 (1.3-6.7); Neutrophils Percent Auto 52.3 % (45.5-73.1); Platelet Count Result 191 k/mm3 (150-375); Red Cell Distribution Width 11.9 % (11.5-14.5); White Blood Count 7.9 K/mm3 (4.5-10.0)
--- OUTSIDE RECORDS SUMMARY | 2024-07-11 11:38 | XMS_ITS | Referral Summary ---
Author Organization [facility] Address [address] [place] [address] Care Team Providers Care Medical Operations Supervisor Name Role Phone Cameron Dorman MD Primary Care Provider [phone] Source Comments [facility],non-owned Affiliates and Associated Physician Practices is amultiple site organization consisting of ambulatory clinics and hospital sitesin [place], [place], [place]. This disclosure is being madepursuant to the Care Everywhere program and may not contain all information available regarding this patient. Last updated 18.[facility] Social History Tobacco Use Types Packs/Day Years Used Date Smoking Tobacco: Every Day Cigarettes Alcohol Use Standard Drinks/Week Comments Yes 0 (1 standard drink = 0.6 oz pur e alcohol) Sex and Gender Information Value Date Recorded Sex Assigned at Not on file Gender Identity Not on file Sexual Orientation Not on file Plan of Treatment Not on file Care Teams Medical Operations Supervisor Relationship Specialty Start Date End Date Cameron Dorman MD [address] [place] [address] PCP - General 07/11/11
--- OUTSIDE RECORDS SUMMARY | 2024-07-11 11:38 | XMS_ITS | Patient Health Summary ---
Author Organization [facility] Address [address] [place] [address] Care Team Providers Care Sales Office Administrator Name Role Phone Cameron Dorman MD Primary Care Provider [phone] Note from [facility],non-owned Affiliates and Associated Physician Practices is amultiple site organization consisting of ambulatory clinics and hospital sitesin [place], [place], [place] and [place]. This disclosure is being madepursuant to the Care Everywhere program and may not contain all information available regarding this patient. Last updated 18.[facility] Social History Tobacco Use Types Packs/Day Years Used Date Smoking Tobacco: Every Day Cigarettes Alcohol Use Standard Drinks/Week Comments Yes 0 (1 standard drink = 0.6 oz pur e alcohol) Sex and Gender Information Value Date Recorded Sex Assigned at Not on file Gender Identity Not on file Sexual Orientation Not on file Procedures * ECHO COMPLETE(Performed 04/25/2012) Results * ECHO W DOPPLER AND COLOR FLOW (04/25/2012 12:00 AM AIR POLLUTION COMPLIANCE INSPECTOR) Anatomical Region Laterality Modality Other 04/25/2012 Dale Barraza MD ECHOCARDIOGRAPHY RAD IANT Care Teams Sales Office Administrator Relationship Specialty Start Date End Date Cameron Dorman MD [address] [place] [address] PCP - General 07/11/11
--- OUTSIDE RECORDS SUMMARY | 2024-07-11 11:38 | XMS_ITS | Clinical Summary ---
Author Organization [facility] Address [address] [place] [id number] Care Team Providers Care Aoc Operations Intelligence Chief Name Role Phone Unavailable Primary Care Provider Unavailabl e Social History Tobacco Use Types Packs/Day Years Used Date Smoking Tobacco: Never Assessed Sex and Gender Information Value Date Recorded Sex Assigned at Not on file Legal Sex Male 4:33 PM CDT Gender Identity Not on file Sexual Orientation Not on file Plan of Treatment Health Maintenance Due Date Last Done Comments Colorectal Cancer Screening Colonoscopy (10 Years) 1965 Annual Physical 10/01/1966 Hepatitis C 10/01/1981 DTaP, Tdap and Td Vaccines ( 1 - Tdap) 10/01/1982 Zoster Vaccines (1 of 2) 10/01/2013 COVID-19 Vaccine ( - 2023-2 5 season) 2024 Influenza Adult (#1) 2024 RSV Immunization or 60+ Years (1 - 1-dose 75+ series) 10/01/2038 Meningococcal B Vaccine Aged Out No l onger eligible based on patient's age to complete this topic Meningococcal Vaccine Aged Out No dalton javi eligible based on patient's age to complete this topic Pneumococcal Vaccine: Pediat rics (0 to 5 Years) and At-Risk Patients (6 to 64 Years) Aged Out No longer eligible b ased on patient's age to complete this topic RSV Immunizations Under 20 Months Aged Out No longer eligible based on patient's age to complete this topic
--- OUTSIDE RECORDS SUMMARY | 2024-07-11 11:38 | XMS_ITS | Clinical Summary ---
Author Organization [facility] Address [facility] [place] [address] Care Team Providers Care Supervisor Lamp Shades Name Role Phone Cameron Dorman MD Primary Care Provider [phone] Source Comments [facility],non-owned Affiliates and Associated Physician Practices is amultiple site organization consisting of ambulatory clinics and hospital sitesin [place], [place], [place] and [place]. This disclosure is being madepursuant to the Care Everywhere program and may not contain all information available regarding this patient. Last updated 18.[facility] Social History Tobacco Use Types Packs/Day Years Used Date Smoking Tobacco: Every Day Cigarettes Alcohol Use Standard Drinks/Week Comments Yes 0 (1 standard drink = 0.6 oz pur e alcohol) Sex and Gender Information Value Date Recorded Sex Assigned at Not on file Gender Identity Not on file Sexual Orientation Not on file Plan of Treatment Health Maintenance Due Date Last Done Comments COLOGUARD (AGES 45-75) - COL ON CA SCREENING 1965 COLON MONITORING 1965 COLONOSCOPY - COLON CA SCREENING 1963 CT COLONOGRAPHY - COLON CA SCREENING 1965 Colorectal Cancer Screening 1965 FIT - COLON CA SCREENING 1965 FLEX SIG - COLON CA SCREENING 1965 LIPID TESTING 1965 HIV SCREENING 10/01/1978 HEPATITIS C SCREENING 09/27/1981 DTAP/TDAP/TD VACCINES (1 - Tdap) 10/01/1982 PNEUMOCOCCAL VACCINE 50+ (1 of 2 - PCV) 10/01/1982 PNEUMOCOCCAL VACCINE (1 of 2 - PCV) 10/01/1982 ZOSTER VACCINE (1 of 2) 10/01/2013 COVID-19 VACCINE ( - 2023-2 5 season) 2024 INFLUENZA VACCINE (#1) 2024 DEPRESSION SCREENING 05/21/2024 Respiratory Syncytial Virus (RSV) Vaccine Pt: or over 60 yrs (1 - 1-dose 75+ series) 10/01/2038 HEPATITIS B VACCINE Aged Out No longe r eligible based on patient's age to complete this topic HIB VACCINE Aged Out No longer eligi ble based on patient's age to complete this topic HPV VACCINE Aged Out No longer eligi ble based on patient's age to complete this topic MENINGOCOCCAL (Group B) VACCINE Aged Out No longer eligible based on patient's age to complete this topic MENINGOCOCCAL VACCINE Aged Out No dalton javi eligible based on patient's age to complete this topic Care Teams Supervisor Lamp Shades Relationship Specialty Start Date End Date Cameron Dorman MD [address] [place] [address] PCP - General 07/11/11
--- OUTSIDE RECORDS SUMMARY | 2024-07-11 11:38 | XMS_ITS | Clinical Summary ---
Author Organization [facility] Address [address] [place] [id number] Care Team Providers Care Team Psychologist Name Role Phone No, Physician Primary Care Provider [phone] Allergies No known active allergies Medications naproxen (NAPROSYN) 500 mg tablet Take 1 tablet (500 mg total) by mouth 2 (two) times a day with meals 30 tablet 09/14/2022 Active lidocaine (LIDODERM) 5 % Place 1 patch on the skin daily Remove & discard patch within 12 hours or as directed by . 10 patch 09/14/2022 Active methylPREDNISol one (MEDROL DOSEPACK) 4 mg Dosepack Take 1 tablet (4 mg total) by mouth daily Take as directed on package 1 packet 09/14/2022 Active tiZANidine (ZANAFLEX) 4 mg tablet Take 1 tablet (4 mg total) by mouth every 6 (six) hours as needed for muscle spasms 30 tablet 09/14/2022 Active Social History Tobacco Use Types Packs/Day Years Used Date Smoking Tobacco: Never Assessed Personal Safety Answer Date Recorded Getting School Help Needed Not on file 10/27 Sex and Gender Information Value Date Recorded Sex Assigned at Not on file Legal Sex Male 8:14 AM CDT Gender Identity Not on file Sexual Orientation Not on file Last Filed Vital Signs Vital Sign Reading Time Taken Comments Blood Pressure 142/82 09/14/2022 8:25 AM CDT Pulse 75 09/14/2022 8:25 AM CDT Temperature 36.9 C (98.4 F) 09/14/2022 8:25 AM CDT Respiratory Rate 18 09/14/2022 8:25 AM CDT Oxygen Saturation 96% 09/14/2022 8:25 AM CDT Inhaled Oxygen Concentration - - Weight 99.6 kg (219 lb 9.3 oz) 09/14/2022 8:25 A M CDT Height 182.9 cm (6') 09/14/2022 8:25 AM CDT Body Mass Index 29.78 09/14/2022 8:25 AM CDT Plan of Treatment Health Maintenance Due Date Last Done Comments Colon Cancer Screening-Colonoscopy 1965 Depression Screening 1965 Hepatitis C Screening 1965 Prostate Cancer Screening-PSA 1965 DTaP/Tdap/Td Vaccine (1 - Tdap) 10/01/1974 Hepatitis B Screening 10/01/1981 Regular Well Visit/Exam 18-64 10/01/1981 Zoster Vaccine (1 of 2) 10/01/2013 Influenza Vaccine (#1) 2024 Pneumococcal vaccine <65 Aged Out No longer eligible based on patient's age to complete this topic Insurance CHOICE PLUS Care Teams Team Psychologist Relationship Specialty Start Date End Date No, Physician PCP - General 09/14/22
--- OUTSIDE RECORDS SUMMARY | 2024-07-11 11:38 | XMS_ITS | Referral Summary ---
Author Organization [facility] Address [address] [place] [id number] Care Team Providers Care Associate Pastor Name Role Phone No, Physician Primary Care Provider [phone] Allergies No known active allergies Medications naproxen [...] 09/14/2022 8:25 AM CDT Plan of Treatment Not on file Insurance CHOICE PLUS Care Teams Associate Pastor Relationship Specialty Start Date End Date No, Physician PCP - General 09/14/22
[2024-07-11 11:50] LABS: Alanine Aminotransferase 20 U/L (6-50); Albumin Level 4.2 g/dL (3.5-5.1); Alkaline Phosphatase 118 U/L (38-126); Anion Gap 9 mmol/L (4-12); Aspartate Amino Transferase 18 U/L (17-59); Bilirubin,Total 0.7 mg/dL (0.2-1.3); Blood Urea Nitrogen 21 mg/dL (9-20); Calcium 9.1 mg/dL (8.4-10.2); Carbon Dioxide 29 mmol/L (22-30); Chloride 97 mmol/L (98-107); Cholesterol 215 mg/dL (0-200); Estimated Glomerular Filt Rate > 60; Glucose 460 mg/dL (65-110); HDL Direct 44 mg/dL; Potassium 4.8 mmol/L (3.4-5.0); Sodium 135 mmol/L (137-145); Triglycerides 162 mg/dL (<150)
[2024-07-11 12:02] LABS: LDL Cholesterol Direct 145 mg/dL
[2024-07-11 12:06] LABS: Vitamin D 25 Hydroxy 25.8 ng/mL
[2024-07-11 14:45] LABS: Thyroid Stimulating Hormone 0.835 uIU/mL (0.465-4.680)
== END 2024-07-11 11:10 | disposition home or self-care (01) ==
LOC: ANHLAB 11:10
PROVIDERS: PCP Emergency Medicine; Visit Provider Emergency Medicine
DX: E78.5 Hyperlipidemia, unspecified (principal); E55.9 Vitamin D deficiency, unspecified; R53.83 Other fatigue; I10 Essential (primary) hypertension
CPT/HCPCS: 36415; 80053; 80061; 82306; 84443; 85025

== ENCOUNTER 2024-07-25 08:19 | Outpatient (CLI) | payer OTHER, SELFPAY ==
--- NOTE | 2024-07-25 08:25 | EST_ITS ---
Patient Info Name: Rebel Valadez Age: 58 years : 1965 Gender: Male Ht: 72 in Wt: 230 lbs BSA: 2.33 m2 Exam Date: 07/25/2024 8:44 AM Exam Location: Echo Lab Patient Status: Outpatient Admit Date: 07/25/2024 Staff Ordering Physician: Antwon Swann MD Attending Provider: Antwon Swann MD Exercise Technologist: Radha Marshall RDCS Exercise Physician: Dante Lee DO Exam Type: CA stress test treadmill Study Info Indications R06.00 - Dyspnea, unspecified A treadmill exercise stress test was performed. Summary 1. 1. Inconclusive Balaji exercise stress test for ischemic ST changes by ECG criteria due to achieving only 66% MPHR for age group and limited by dry mouth and patient request to stop. 2. 2. Reduced functional capacity, achieving 5.9 METs of workload. 3. 3. Appropriate HR response to exercise. 4. 4. Appropriate HR recovery at 1 minute post exercise. 5. 5. No imaging with stress testing. 6. 6. Patient informed of the above results. Protocol: Balaji Stress ECG Details Stage: REST Duration (min): 0 min : 50 sec Speed (mph): 0.0 Grade (%): 0 HR (bpm): 62 SBP (mmHg): 125 DBP (mmHg): 71 METS: --- Stage: REST Duration (min): 5 min : 37 sec Speed (mph): 0.0 Grade (%): 0 HR (bpm): 62 SBP (mmHg): 125 DBP (mmHg): 71 METS: --- Stage: STAGE 1 Duration (min): 1 min : 0 sec Speed (mph): 1.7 Grade (%): 10 HR (bpm): 81 SBP (mmHg): 125 DBP (mmHg): 71 METS: --- Stage: STAGE 1 Duration (min): 2 min : 0 sec Speed (mph): 1.7 Grade (%): 10 HR (bpm): 93 SBP (mmHg): 125 DBP (mmHg): 71 METS: --- Stage: STAGE 1 Duration (min): 3 min : 0 sec Speed (mph): 1.7 Grade (%): 10 HR (bpm): 95 SBP (mmHg): 155 DBP (mmHg): 67 METS: --- Stage: STAGE 2 Duration (min): 0 min : 49 sec Speed (mph): 2.5 Grade (%): 12 HR (bpm): 105 SBP (mmHg): 155 DBP (mmHg): 67 METS: --- Stage: RECOVERY Duration (min): 0 min : 10 sec Speed (mph): 0.0 Grade (%): 0 HR (bpm): 99 SBP (mmHg): 155 DBP (mmHg): 67 METS: --- Stage: RECOVERY Duration (min): 1 min : 10 sec Speed (mph): 0.0 Grade (%): 0 HR (bpm): 92 SBP (mmHg): 155 DBP (mmHg): 67 METS: --- Stage: RECOVERY Duration (min): 2 min : 10 sec Speed (mph): 0.0 Grade (%): 0 HR (bpm): 77 SBP (mmHg): 175 DBP (mmHg): 64 METS: --- Stage: RECOVERY Duration (min): 3 min : 10 sec Speed (mph): 0.0 Grade (%): 0 HR (bpm): 75 SBP (mmHg): 156 DBP (mmHg): 74 METS: --- Stage: RECOVERY Duration (min): 4 min : 10 sec Speed (mph): 0.0 Grade (%): 0 HR (bpm): 70 SBP (mmHg): 156 DBP (mmHg): 74 METS: --- Stage: RECOVERY Duration (min): 5 min : 10 sec Speed (mph): 0.0 Grade (%): 0 HR (bpm): 69 SBP (mmHg): 148 DBP (mmHg): 76 METS: --- Stage: RECOVERY Duration (min): 6 min : 10 sec Speed (mph): 0.0 Grade (%): 0 HR (bpm): 69 SBP (mmHg): 148 DBP (mmHg): 76 METS: --- Stage: RECOVERY Duration (min): 6 min : 50 sec Speed (mph): 0.0 Grade (%): 0 HR (bpm): 67 SBP (mmHg): 143 DBP (mmHg): 75 METS: --- Rest HR: 62 bpm Peak HR: 105 bpm Rest Sys BP: 125 mmHg Peak Sys BP: 175 mmHg Max Pred HR: 160 bpm % Max Pred HR: 66 % Target HR: 136 bpm Max RPP: 18,375 bpm*mmHg Woody Score: 0 Termination Reason: Maximal effort/unable to continue Cardiac Symptoms: Dry mouth/gagging/SOB Max ST Seg Deviation: 0.70 mm Total Time: 3 min : 49 sec Rest Bourgeois BP: 71 mmHg Peak Bourgeois BP: 64 mmHg Angina Score: None Total METS: 5.9 Resting ECG Sinus rhythm. Stress ECG No ST changes. Arrhythmias None. Report Signatures
--- OUTSIDE RECORDS SUMMARY | 2024-07-25 08:27 | XMS_ITS | Patient Health Summary ---
Author Organization [facility] Address [address] [facility] [place] [address] Care Team Providers Care Educational Advisor Name Role Phone Cameron Dorman MD Primary Care Provider [phone] Note from [facility],non-owned Affiliates and Associated Physician Practices is amultiple site organization consisting of ambulatory clinics and hospital sitesin [place], [place], [place] and [place]. This disclosure is being madepursuant to the Care Everywhere program and may not contain all information available regarding this patient. Last updated 18.[facility] Social History Tobacco Use [...] DOPPLER AND COLOR FLOW (04/25/2012 12:00 AM CONTRACT WRITER) Anatomical Region Laterality Modality Other 04/25/2012 Dale Barraza MD ECHOCARDIOGRAPHY RAD IANT Care Teams Educational Advisor Relationship Specialty Start Date End Date Cameron Dorman MD [address] [place] [address] PCP - General 07/11/11
--- OUTSIDE RECORDS SUMMARY | 2024-07-25 08:27 | XMS_ITS | Clinical Summary ---
Author Organization [facility] Address [address] [place] [address] Care Team Providers Care Mainframe Developer Name Role Phone Unavailable Primary Care Provider [...]
--- OUTSIDE RECORDS SUMMARY | 2024-07-25 08:27 | XMS_ITS | Referral Summary ---
Author Organization [facility] Address [address] [place] [address] Care Team Providers Care Hand Thermal Cutter Name Role Phone Cameron oDrman MD Primary Care Provider [phone] Source Comments [facility],non-owned Affiliates and Associated Physician Practices is amultiple site organization consisting of ambulatory clinics and hospital sitesin [place], [place], [place] and [place]. This disclosure is being madepursuant to the Care Everywhere program and may not contain all information available regarding this patient. Last updated 18.[facility] Social History Tobacco Use Types Packs/Day Years Used Date Smoking Tobacco: Every Day Cigarettes Alcohol Use Standard Drinks/Week Comments Yes 0 (1 standard drink = 0.6 oz pur e alcohol) Sex and Gender Information Value Date Recorded Sex Assigned at Not on file Gender Identity Not on file Sexual Orientation Not on file Plan of Treatment Not on file Care Teams Hand Thermal Cutter Relationship Specialty Start Date End Date Cameron Dorman MD [address] [place] [address] PCP - General 07/11/11
--- OUTSIDE RECORDS SUMMARY | 2024-07-25 08:27 | XMS_ITS | Clinical Summary ---
Author Organization [facility] Address [address] [place] [address] Care Team Providers Care Welt Beater Name Role Phone Cameron Dorman MD Primary Care Provider [phone] Source Comments [facility],non-owned Affiliates and Associated Physician Practices is amultiple site organization consisting of ambulatory clinics and hospital sitesin [place], [place], [place] and [place]. This disclosure is being madepursuant to the Care Everywhere program and may not contain all information available regarding this patient. Last updated 18.[facility] [employer] Social History Tobacco Use Types Packs/Day Years [...] VACCINES (1 - Tdap) 10/01/1982 PNEUMOCOCCAL VACCINE (1 of 2 - PCV) 10/01/1982 PNEUMOCOCCAL VACCINE 50+ (1 of 1 - PCV) 10/01/2013 ZOSTER VACCINE (1 of 2) 10/01/2013 COVID-19 [...] age to complete this topic Care Teams Welt Beater Relationship Specialty Start Date End Date Cameron Dorman MD [address] [place] [address] PCP - General 07/11/11
== END 2024-07-25 08:20 | disposition home or self-care (01) ==
LOC: ANHCARD 08:20
PROVIDERS: PCP Emergency Medicine; Visit Provider Emergency Medicine
DX: R06.00 Dyspnea, unspecified (principal)
CPT/HCPCS: 93017

== ENCOUNTER 2024-07-28 06:38 | Outpatient (CLI) | payer OTHER, SELFPAY ==
--- NOTE | ~2024-07-28 | CT_ITS ---
CT Scan of the Chest without Contrast: Clinical Indication: Lung cancer screening, nicotine dependence Technique: Contiguous sections were acquired throughout the chest without intravenous contrast. Dose reduction technique was used on this scan by utilizing automated exposure control and iterative recon struction technique. The dose-length product (DLP) was 122.97 mGy-cm. Findings: There is no evidence of any significant mediastinal, hilar or axillary lymphadenopathy. The mediastin al soft tissues appear normal. There is no evidence of pleural or pericardial effusion. There is patchy mild interstitial thickening peripherally in the upper lobes with minimal groundglass opacities. No discrete pulmonary nodule seen. Images through the upper abdomen reveal no abnormalities. There is mild chronic T12 compression defor mity. Impression: Lung RADS 2: Benign appearance. [address] advised. Upper lobe predominant, peripheral interstitial changes and minimal ground glass opacities. Correlate for chronic interstitial disease or atypical infectious/inflammatory process. Reviewed, dictated and finalized at [facility]. Impression: Lung RADS 2: Benign appearance. [address] advised. Upper lobe predominant, peripheral interstitial changes and minimal ground glas s opacities. Correlate for chronic interstitial disease or atypical infectious/ inflammatory process.
--- NOTE | ~2024-07-28 | MR_ITS ---
MRA HEAD History: Aneurysm Technique: 3D time of flight MRA of the head is performed. Findings: The right and left distal vertebral arteries and the basilar and posterior cerebral arterie s are normal. Right and left distal internal carotid arteries and anterior and middle cerebral arteri es are normal. There is no aneurysm, stenosis, or occlusion. Impression: No occlusion, stenosis, or aneurysm. Reviewed, dictated and finalized at location . Impression: No occlusion, stenosis, or aneurysm.
--- NOTE | ~2024-07-28 | US_ITS ---
EXAMINATION: US carotid duplex BI DATE: 07/28/2024 07:57 INDICATION: Syncope. Other specified symptoms and signs involving the circulatory system. TECHNIQUE: Grayscale, color Doppler, and pulsed Doppler images of the cervical carotid arteries were obtained. The degree of vessel stenosis is placed in one of the following categories: normal, <50%, 5 0-69%, >=70% but less than near-occlusion, near-occlusion, or total occlusion. Note that percent sten osis relative to normal distal artery lumen diameter is indirectly measured from velocity measurement s as described by Carlos, et al. Radiology 2003; 229:340-346. COMPARISON: Ultrasound 07/06/2011 FINDINGS: RIGHT: The right common carotid artery (CCA) peak systolic velocity (PSV) is 68 cm/s. The right internal car otid artery (ICA) PSV is 72 cm/s. The right ICA end-diastolic velocity (EDV) is 26 cm/s. The right IC A/CCA PSV ratio is 1.4. Grayscale and color Doppler images yield an estimate of <50% diameter reducti on from plaque in the ICA. There is antegrade flow in the right vertebral artery. LEFT: The left CCA PSV is 65 cm/s. The left ICA PSV is 115 cm/s. The left ICA EDV is 42 cm/s. The left ICA/ CCA PSV ratio is 1.8. Grayscale and color Doppler images yield an estimate of <50% diameter reduction from plaque in the ICA. There is antegrade flow in the left vertebral artery. IMPRESSION: 1. <50% stenosis in the right internal carotid artery. 2. <50% stenosis in the left internal carotid artery. Reviewed, dictated and finalized at location B.
--- OUTSIDE RECORDS SUMMARY | 2024-07-28 06:41 | XMS_ITS | Clinical Summary ---
Author Organization [facility] Address [address] [place] [id number] Care Team Providers Care Customer Experience Consultant Name Role Phone Unavailable Primary Care Provider [...]
--- OUTSIDE RECORDS SUMMARY | 2024-07-28 06:41 | XMS_ITS | Clinical Summary ---
Author Organization [facility] Address [address] [place] [address] Care Team Providers Care Die Casting Supervisor Name Role Phone Cameron Dorman MD Primary Care Provider [phone] Source Comments [facility],non-owned Affiliates and Associated Physician Practices is amultiple site organization consisting of ambulatory clinics and hospital sitesin [place], [place], [place] and [place]. This disclosure is being madepursuant to the Care Everywhere program and may not contain all information available regarding this patient. Last updated 18.[facility] [employer] Social History Tobacco Use Types Packs/Day Years [...] age to complete this topic Care Teams Die Casting Supervisor Relationship Specialty Start Date End Date Cameron Dorman MD [address] [place] [address] PCP - General 07/11/11
--- OUTSIDE RECORDS SUMMARY | 2024-07-28 06:42 | XMS_ITS | Referral Summary ---
Author Organization [facility] Address [address] [place] [address] Care Team Providers Care Water Pump Installer Name Role Phone Cameron Dorman MD Primary Care Provider [phone] Source Comments [facility],non-owned Affiliates and Associated Physician Practices is amultiple site organization consisting of ambulatory clinics and hospital sitesin [place], [place], [place] and [place]. This disclosure is being madepursuant to the Care Everywhere program and may not contain all information available regarding this patient. Last updated 18.[facility] Social History Tobacco Use [...] of Treatment Not on file Care Teams Water Pump Installer Relationship Specialty Start Date End Date Cameron Dorman MD [address] [place] [address] PCP - General 07/11/11
--- OUTSIDE RECORDS SUMMARY | 2024-07-28 06:42 | XMS_ITS | Patient Health Summary ---
Author Organization [facility] Address [address] [place] [address] Care Team Providers Care Parts Specialist Name Role Phone Cameron Dorman MD Primary Care Provider [phone] [facility],non-owned Affiliates and Associated Physician Practices is amultiple site organization consisting of ambulatory clinics and hospital sitesin [place], [place], [place] and [place]. This disclosure is being madepursuant to the Care Everywhere program and may not contain all information available regarding this patient. Last updated 18.[facility] Social History Tobacco Use Types Packs/Day Years [...] DOPPLER AND COLOR FLOW (04/25/2012 12:00 AM VISUAL DISPLAY MANAGER) Anatomical Region Laterality Modality Other 04/25/2012 Dale Barraza MD ECHOCARDIOGRAPHY RAD IANT Care Teams Parts Specialist Relationship Specialty Start Date End Date Cameron Dorman MD [address] [place] [address] PCP - General 07/11/11
--- OUTSIDE RECORDS SUMMARY | 2024-07-28 06:42 | XMS_ITS | Referral Summary ---
Author Organization [facility] Address [address] [place] [id number] Care Team Providers Care Polystyrene Bead Molder Name Role Phone No, Physician Primary Care Provider [phone] Allergies No known active allergies Medications naproxen [...] on file Insurance [employer] Care Teams Polystyrene Bead Molder Relationship Specialty Start Date End Date No, Physician PCP - General 09/14/22
--- OUTSIDE RECORDS SUMMARY | 2024-07-28 06:42 | XMS_ITS | Clinical Summary ---
Author Organization [facility] Address [address] [place] [id number] Care Team Providers Care New Car Get Ready Mechanic Name Role Phone No, Physician Primary Care Provider [phone] Allergies No known active allergies Medications naproxen [...] to complete this topic Insurance [facility] H[facility]/PPO Address: [facility] [address] [place] [address] Care Teams New Car Get Ready Mechanic Relationship Specialty Start Date End Date No, Physician PCP - General 09/14/22
== END 2024-07-28 06:39 | disposition home or self-care (01) ==
PROVIDERS: PCP Emergency Medicine; Visit Provider Emergency Medicine
DX: R09.89 Other specified symptoms and signs involving the circulatory and respiratory systems (principal); Z12.2 Encounter for screening for malignant neoplasm of respiratory organs; Z87.891 Personal history of nicotine dependence; I67.1 Cerebral aneurysm, nonruptured
CPT/HCPCS: 70544; 71271; 93880

== ENCOUNTER 2024-11-25 13:06 | Outpatient (CLI) | payer OTHER, SELFPAY ==
--- NOTE | ~2024-11-25 | MR_ITS ---
MRI of the right femur CLINICAL HISTORY: Other disorder of bone TECHNIQUE: T1-weighted and STIR images were performed in the axial, coronal, and sagittal planes. FINDINGS: Bone marrow signals in the visualized femur are unremarkable. No fracture or significant kamla ne marrow edema seen in the visualized femur. Joint spaces of the knee are relatively well-preserved. Minimal knee joint effusion present. Visualized musculature identified is unremarkable. No muscle atrophy or edema. Visualized tendons destinee ear intact. No soft tissue mass or fluid collection. Subcutaneous soft tissues are unremarkable. IMPRESSION: No significant abnormality. Please refer to separately reported hip MR for findings of the right femo ral head. Reviewed, dictated and finalized at location M. IMPRESSION: No significant abnormality. Please refer to separately reported hip MR for find ings of the right femoral head.
--- NOTE | ~2024-11-25 | MR_ITS ---
MRI of the right hip Clinical history: Pain Technique: Coronal T1-weighted, T2-weighted, and proton-density fat-sat images, and axial T1-weighted and proton-density fat-sat images were acquired through the pelvis. Coronal T2-weighted images and c oronal, axial, and sagittal proton-density fat-sat images were acquired through the right hip. Findings: There is geographic signal abnormality circumscribed by a hypointense line T1-weighted imag es, and with double line sign and T2-weighted images, compatible avascular necrosis of the right femo ral head. No subchondral fracture articular surface collapse. There is associated moderate to advance d osteoarthritic change of joint, with diffuse high-grade chondral malacia, small femoral head neck j unction osteophytes, and joint space narrowing. No significant joint effusion. There is probable exte nsive degenerative attenuation of the right acetabular labrum, especially at the superior to the supe rolateral aspect. Left hip arthroplasty in place. Remaining bone marrow signals are otherwise unremarkable. SI joints i ntact. Visualized musculature about the pelvis and right hip is unremarkable. No asymmetric muscle atrophy o r edema. Visualized tendons appear intact. No soft tissue mass or fluid collection. IMPRESSION: Avascular necrosis of the right femoral head. No subchondral fracture articular surface collapse. Associated moderate to severe osteoarthritic change of the right hip joint, as detailed above. Probable degenerative attenuation of the right acetabular labrum, especially the superior to superola teral aspect. Left hip arthroplasty. Reviewed, dictated and finalized at [facility]. IMPRESSION: Avascular necrosis of the right femoral head. No subchondral fracture articular surface collapse. Associated moderate to severe osteoarthritic change of the right hip joint, as detailed above. Probable degenerative attenuation of the right acetabular labrum, especially th e superior to superolateral aspect. Left hip arthroplasty.
== END 2024-11-25 13:07 | disposition home or self-care (01) ==
PROVIDERS: Visit Provider Emergency Medicine
DX: M89.8X5 Other specified disorders of bone, thigh (principal); M87.851 Other osteonecrosis, right femur; M16.11 Unilateral primary osteoarthritis, right hip; Z96.642 Presence of left artificial hip joint
CPT/HCPCS: 73718; 73721

== ENCOUNTER 2025-03-02 13:50 | Outpatient (CLI) | payer OTHER, SELFPAY ==
--- NOTE | ~2025-03-02 | CT_ITS ---
EXAMINATION: CT lumbar spine wo con DATE: 03/02/2025 14:19 INDICATION: Lumbar burst fracture. TECHNIQUE: Computed tomography (CT) of the lumbar spine was performed without intravenous contrast. Automated exposure control and iterative reconstruction technique were employed. The dose-length product was 1190.36 mGy-cm. COMPARISON: CT abdomen and pelvis 09/10/2022 FINDINGS: Alignment is normal. There is a compression fracture of T12 with 2/5 loss of height and changes of vertebroplasty. There is a burst fracture of L3 with changes of vertebroplasty and retropulsion of bone 3 mm into central spinal canal. There is 3 mm anterolisthesis of L4 on L5. There is moderately decreased disc height at L1-L2, L2-L3, and L3-L4, mildly decreased disc height at L4-L5, and moderately decreased disc height at L5-S1. Osseous central spinal canal is developmentally small. There are old fractures of the right L1-L5 transverse processes. The following disc levels are specifically discussed: L1-L2: The disc is bulging. There is mild bilateral facet joint osteoarthritis. There is mild right and moderate left neural foraminal stenosis. There is mild central canal stenosis. L2-L3: The disc is bulging. There is moderate bilateral facet joint osteoarthritis. There is mild right and moderate left neural foraminal stenosis. There is mild central canal stenosis. L3-L4: The disc is bulging. There is severe bilateral facet joint osteoarthritis. There is moderate bilateral neural foraminal stenosis. There is moderate central canal stenosis. L4-L5: The disc is bulging. There is severe bilateral facet joint osteoarthritis. There is mild bilateral neural foraminal stenosis. There is mild central canal stenosis. L5-S1: The disc is bulging. There is severe bilateral facet joint osteoarthritis. There is moderate right and mild left neural foraminal stenosis. There is mild central canal stenosis. IMPRESSION: 1. Moderate lumbar spondylosis. Reviewed, dictated and finalized at location E.
--- OUTSIDE RECORDS SUMMARY | 2025-03-02 15:09 | XMS_ITS | Clinical Summary ---
Author Organization [facility] Address [address] [place] [id number] Care Team Providers Care Faculty I On Call Medical Assistant Name Role Phone Javier Lima MD Unavailable [phone] Hillary Tam MD Unavailable Ivan Farley MD Primary Care Provider [phone] Allergies No known active allergies Medications pen needle, diabetic 32 gauge x 5/32 needleIndication s:type 2 DM A1C not at goal Use as directed to inject insulin 4 times a day. 100 each 10/25/19 25 Active blood-glucose meter kit Use as directed. 1 kit 10/25/19 25 Active lancets misc Use as directed up to 4 times a day. 100 each 1 10/25/19 25 Active OneTouch Verio test strips strip Use as directed up to four times a day. 100 each 1 10/25/19 25 Active glucagon (Gvoke HypoPen 2-Pack) 1 mg/0.2 mL auto-injectorInd ications:patient with diabetes mellitus at risk of hypoglycemia Inject 1 mg under the skin as directed by provider for low blood sugar. 0.4 mL 10/25/19 25 Active naloxone (NARCAN) 4 mg/actuation spray,non-aeroso l Administer 1 spray into affected nostril(s) as needed for opioid reversal Call 911. Administer a single spray in one nostril. Repeat every 3 minutes as needed if no or minimal response. 2 each 3 10/25/19 25 Active OneTouch Delica Plus Lanc Dev kit 1 Application by other route as needed 10/30/19 25 Active OneTouch Verio Reflect Meter misc 1 Application by other route as directed 10/28/19 25 Active OneTouch Delica Plus Lancet 30 gauge misc 1 applicator by other route as directed 11/20/19 25 Active tiZANidine (ZANAFLEX) 4 mg tabletIndication s:Chronic pain syndrome Take 1 tablet (4 mg total) by mouth 2 (two) times a day as needed for muscle spasms 60 tablet 11 12/30/19 25 026 Active metFORMIN XR (GLUCOPHAGE XR) 500 mg 24 hr tabletIndication s:Type 2 diabetes mellitus with hyperglycemia, without long-term current use of insulin ([facility]) Take 2 tablets (1,000 mg total) by mouth 2 (two) times a day Week 1, take 1 tablet (500 mg total) by mouth once daily with breakfast. Week 2, take 1 tablet with breakfast and 1 tablet with dinner (1000 mg total). 360 tablet 3 12/30/19 25 026 Active insulin glargine (LANTUS) 100 unit/mL (3 mL) pen for injectionIndicat ions:Type 2 diabetes mellitus with hyperglycemia, without long-term current use of insulin ([facility]) Inject 15 Units under the skin nightly 15 mL 1 12/30/19 25 Active gabapentin (NEURONTIN) 600 mg tabletIndication s:Neuropathic Pain Take 1 tablet (600 mg total) by mouth every 8 (eight) hours 270 tablet 3 12/30/19 25 026 Active zolpidem (AMBIEN) 10 mg tabletIndication s:Sleep-Onset Insomnia Take 1 tablet (10 mg total) by mouth nightly 30 tablet 5 12/30/19 25 026 Active ALPRAZolam (XANAX) 0.5 mg tablet Take 1 tablet (0.5 mg total) by mouth 2 (two) times a day as needed for anxiety 30 tablet 02/11/20 25 026 Active ALPRAZolam (XANAX) 0.5 mg tablet Take 1 tablet (0.5 mg total) by mouth 2 (two) times a day as needed for anxiety 12/30/19 25 025 Discontinu ed(Reorder ) amoxicillin-clav ulanate (AUGMENTIN) 875-125 mg per tablet Take 1 tablet by mouth 2 (two) times a day for 10 days 20 tablet 02/11/20 25 025 HYDROcodone-acet aminophen (NORCO) 10-325 mg per tabletIndication s:Pain Take 1 tablet by mouth every 6 (six) hours as needed for pain for up to 10 days 40 tablet 02/12/20 25 025 Active Problems Problem Noted Date Diagnosed Date Closed stable burst fracture of lumbar vertebra, unspecified lumbar vertebral level, initial encounter 01/08/2025 Lumbar stenosis with neurogenic claudication Closed stable burst fracture of lumbar vertebra 12/02/2024 Spinal stenosis of lumbar region 12/02/2024 Low back pain, non-specific 12/02/2024 Closed burst fracture of lumbar vertebra, initia l encounter 10/19/2024 ICB (intracranial bleed) 2024 Acute pulmonary edema 10/01/2024 Type 2 diabetes mellitus with hyperglycemia 09/18 Acute hyponatremia 09/30/2024 Acute pain 09/30/2024 Closed fracture of multiple ribs of both sides 0 09/30/2024 Closed fracture of transverse process of thoraci c vertebra 09/30/2024 Closed traumatic compression fracture of lumbar vertebra 09/30/2024 Fall 09/30/2024 Traumatic brain injury 09/30/2024 Closed stable burst fracture of third lumbar jil tebra 09/30/2024 Lumbar transverse process fr acture, closed, initial encounter 09/30/2024 Encounters Date Type Department Care Team Description 02/19/2025 Documentation [facility] [address] [place] [address] 3, [address] [place] [address] Kitty Hobbs MA 02/18/2025 10:30 AM CDT Office Visit [facility] [address] [place] [address] 3, [address] [place] [address] Tera Cope MD S/P lumbar spine operation (Primary Dx); Lumbar pain 02/18/2025 9:13 AM CDT - 02/18/2025 11:59 PM CDT Hospital Encounter [facility] Di[facility] Imaging [address] [place] [address] S/P lumbar spine operation Discharge Disposition: Discharge to home or self care 02/10/2025 Orders Only [facility] Family Medicine at [address] [place] [address] Ivan Farley MD 02/10/2025 Telephone [facility] Family Medicine at [address] [place] [address] Ivan Farley MD 01/08/2025 7:30 AM CDT - 01/08/2025 10:30 AM CDT Surgery [facility] OR [address] [place] [address] Tera Cope MD BILATERAL LUMBAR 3 - LUMBAR 4 OPEN INTERLAMINAR DECOMPRESSION WITH FORAMINOTOMY 01/08/2025 7:23 AM CDT Anesthesia Event [facility] OR [address] [place] [address] Roshan Zurita MD Lynn, Lori Frances, CRNA 01/08/2025 5:27 AM CDT - 01/09/2025 11:24 AM CDT Hospital Encounter [address] [address] Tera Cope MD Closed stable burst fracture of lumbar vertebra, unspecified lumbar vertebral level, initial encounter (HCC); Spinal stenosis of lumbar region, unspecified whether neurogenic claudication present; Low back pain, non-specific Discharge Disposition: Discharge to home or self care 01/02/2025 8:00 AM CDT - 01/02/2025 11:59 PM CDT Hospital Encounter [facility] Di[facility] [address] [place] [id number] Low back pain, non-specific; Bilateral hip pain Discharge Disposition: Discharge to home or self care 01/01/2025 Orders Only [facility] [address] [place] [address] 3, [address] [place] [address] Tera Cope MD Low back pain, non-specific (Primary Dx); Bilateral hip pain 12/29/2024 1:45 PM CDT Office Visit [facility] Family Medicine at [address] [place] [address] Ivan Farley MD Encounter for annual health examination (Primary Dx); Screening for prostate cancer; Type 2 diabetes mellitus with hyperglycemia, without long-term current use of insulin (HCC); Screening for colon cancer; Personal history of tobacco use, presenting hazards to health; Chronic pain syndrome 12/25/2024 10:00 AM CDT Pre-Admission Testing [facility] PreAdmission Testing [address] [place] [address] Closed stable burst fracture of lumbar vertebra, unspecified lumbar vertebral level, initial encounter (HCC); Spinal stenosis of lumbar region, unspecified whether neurogenic claudication present; Low back pain, non-specific 12/25/2024 8:52 AM CDT - 12/25/2024 11:59 PM CDT Hospital Encounter [facility] Pain Mgmt [address] [place] [address] [address] [place] [address] Hillary Tam MD Bulge of lumbar disc without myelopathy (Primary Dx); Neural foraminal stenosis of lumbar spine; Radiculopathy, lumbar region Discharge Disposition: Discharge to home or self care 12/24/2024 Orders Only [facility] PreAdmission Testing [address] [place] [address] Remedios Huerta RN 12/23/2024 Orders Only [facility] PreAdmission Testing [address] [place] [address] Remedios Huerta RN 12/02/2024 Orders Only [facility] [address] [place] [address] 3, [address] [place] [address] Tera Cope MD 12/02/2024 Orders Only [facility] [address] [place] [address] 3, [address] [place] [address] Tera Cope MD 12/02/2024 Orders Only [facility] [address] [place] [address] [address], [address] [place] [address] Tera Cope MD S/P lumbar spine operation (Primary Dx) 12/02/2024 Documentation [facility] Neuro[facility] [address] [place] [address] 3, [address] [place] [address] Alvina Marie RN 12/01/2024 2:22 PM CDT - 12/01/2024 11:59 PM CDT Hospital Encounter [facility] Pain [facility] [address] [place] [address] [address] [place] [address] Hillary Tam MD Bulge of lumbar disc without myelopathy (Primary Dx); Neural foraminal stenosis of lumbar spine; Radiculopathy, lumbar region Discharge Disposition: Discharge to home or self care 12/01/2024 Orders Only [facility] Neuro[facility] [address] [place] [address], [address] [place] [address] Tera Cope MD from Last 3 Months Immunizations Immunization Administration Dates Next Due Influenza, Unspecified 02/15/2024(Deferred: Neyda ent decision) Surgical History Surgery Date Site/Laterality Comments PAIN MGMT IMAGING KYPHOPLASTY LUMBAR 05/21/2024 - 2024 TOTAL HIP ARTHROPLASTY Left Medical History Medical History Date Comments Diabetes mellitus Back pain Type 2 diabetes mellitus Family History Relation Name Status Comments Father Mother Social History Tobacco Use Types Packs/Day Years Used Date Smoking Tobacco: Every Day Cigarettes 0.5 35.4 Started: 10/1989 Smokeless Tobacco: Never Tobacco Cessation:Ready to Q uit: Not Asked; Counseling Given: Not Answered Alcohol Use Standard Drinks/Week Comments Yes 0 (1 standard drink = 0.6 oz pur e alcohol) Social Connection and Isolation Panel Answer Date Recorded In a typical week, how many times do you talk on the phone with family, friends, or neighbors? Three times a week 10/20/2024 How often do you get togethe r with friends or relatives? Three times a week 10/20/2024 How often do you attend chur ch or jehovah's witness services? Never 10/20/2024 Do you belong to any clubs o r organizations such as bahai groups, unions, fraternal or athletic groups, or school groups? No 10/20/2024 How often do you attend meet ings of the clubs or organizations you belong to? Never 10/20/2024 Are you , , di vorced, , never , or living with a partner? 10/20/2024 Overall Financial Resource Strain (CARDIA) Answe r Date Recorded How hard is it for you to pa y for the very basics like food, housing, medical care, and heating? Not hard at all 10/20/2024 PHQ-2 Answer Date Recorded PHQ-2 Total Score (If total score is 3 or more points, staff should administer the PHQ-9) 0 12/29/2024 PRAPARE - Transportation Answer Date Re corded In the past 12 months, has l ack of transportation kept you from medical appointments or from getting medications? No 06/2024 In the past 12 months, has l ack of transportation kept you from meetings, work, or from getting things needed for daily living? No 10/20/2024 PHQ-9 Answer Date Recorded PHQ-9 Total Score 0 12/29/2024 Housing Stability Vital Sign Answer Dilshad e Recorded In the last 12 months, was t here a time when you were not able to pay the mortgage or rent on time? No 10/20/2024 In the past 12 months, how m any times have you moved where you were living? 0 10/20/2024 At any time in the past 12 m [facility], were you homeless or living in a longterm (including now)? No 10/20/2024 Social Connection and Isolation Panel Answer Date Recorded In a typical week, how many times do you talk on the phone with family, friends, or neighbors? More than three times a week 01/09/2025 How often do you get togethe r with friends or relatives? More than three times a week 01/09/2025 How often do you attend chur ch or jehovah's witness services? More than 4 times per year 01/09/2025 Do you belong to any clubs o r organizations such as bahai groups, unions, fraternal or athletic groups, or school groups? No 01/09/2025 How often do you attend meet ings of the clubs or organizations you belong to? Never 01/09/2025 Are you , , di vorced, , never , or living with a partner? 01/09/2025 AUDIT-C Answer Date Recorded Q1: How often do you have a drink containing alc ohol? Monthly or less 02/18/2025 Q2: How many drinks containi ng alcohol do you have on a typical day when you are drinking? 1 or 2 02/18/2025 Q3: How often do you have si x or more drinks on one occasion? Never 02/18/2025 Overall Financial Resource Strain (CARDIA) Answe r Date Recorded How hard is it for you to pa y for the very basics like food, housing, medical care, and heating? Not hard at all 01/09/2025 Hunger Vital Sign Answer Date Recorded Within the past 12 months, y ou worried that your food would run out before you got the money to buy more. Never true 01/10/20 25 Within the past 12 months, t he food you bought just didn't last and you didn't have money to get more. Never true 01/09/2025 PRAPARE - Transportation Answer Date Re corded In the past 12 months, has l ack of transportation kept you from medical appointments or from getting medications? No 12/20 In the past 12 months, has l ack of transportation kept you from meetings, work, or from getting things needed for daily living? No 01/09/2025 Housing Stability Vital Sign Answer Dilshad e Recorded In the last 12 months, was t here a time when you were not able to pay the mortgage or rent on time? No 01/09/2025 In the past 12 months, how m any times have you moved where you were living? 0 01/09/2025 At any time in the past 12 m [facility], were you homeless or living in a longterm (including now)? No 01/09/2025 [facility] Utilities Answer Date Recorded In the past 12 months has th e electric, gas, oil, or water company threatened to shut off services in your home? No 01/09/2025 Personal Safety Answer Date Recorded Have you ever been in or are you currently in a harmful physical or emotional relationship or is someone making you feel afraid or unsafe? Denies 01/08/2025 Sex and Gender Information Value Date Recorded Sex Assigned at Not on file Legal Sex Male 8:14 AM CDT Gender Identity Not on file Sexual Orientation Not on file Obstetrics History Last Filed Vital Signs Vital Sign Reading Time Taken Comments Blood Pressure 106/72 02/18/2025 9:38 AM CDT Pulse 83 02/18/2025 9:38 AM CDT Temperature 36.9 C (98.4 F) 01/09/2025 11:05 AM CDT Respiratory Rate 18 02/18/2025 9:38 AM CDT Oxygen Saturation 97% 02/18/2025 9:38 AM CDT Inhaled Oxygen Concentration - - Weight 88.9 kg (196 lb) 01/08/2025 1:20 PM CDT Height 182.9 cm (6') 01/08/2025 1:20 PM CDT Body Mass Index 26.58 01/08/2025 1:20 PM CDT Plan of Treatment Health Maintenance Due Date Last Done Comments Albumin Creatinine Ratio, Urine 1963 Colon Cancer Screening-Colonoscopy 1965 Hepatitis C Screening 1963 Prostate Cancer Screening-PSA 1963 Dilated Eye Exam 1963 Foot Exam 1963 Lipid Panel 1963 DTaP/Tdap/Td Vaccine (1 - Tdap) 10/01/1974 Hepatitis B Screening 10/01/1981 Zoster Vaccine (1 of 2) 10/01/2013 Influenza Vaccine (#1) 2025 Hemoglobin A1C 06/27/2025 12/25/2024, 09/30/2024 Pneumococcal vaccine <65 (1 of 2 - PCV) 12/14/2025 Postponed from 10/01 (Patient declined, but will receive in the future) eGFR 12/25/2025 12/25/2024, 10/20/2024, 10/19/2024 Depression Screening 12/29/2025 12/29/2024, 12/29/2024 Regular Well Visit/Exam 18-64 12/29/2025 12/29/2024 Medical Devices Implanted Type Area Rollway Worker Device Identifier Shelf Expiration Date Model / Serial / Lot Total Hip Left: Hip [employer] Vertaplex Hv Autoplex Without Needle Delivery System Kit Bone [id number] - [id number] Implanted:Qty : 1 on 10/23/2024 by Hillary Tam MD at [facility] N/A: Spine Lumbar [employer] [id number] 12/19/2025 [id number] / / [id number] [employer] Od13 Ga L10 Mm Balloon Tray Bone Cement [id number] - [id number] Implanted:Qty : 2 on 10/23/2024 by Hillary Tam MD at [facility] N/A: Spine Lumbar [employer] [id number] 04/10/2025 [id number] / / [id number] Procedures Procedure Name Priority Date/Time Associated Diagnosis Comments XR SPINE LUMBAR 2 OR 3 VIEWS Schedule Routine, Read Routine (OP Routine) 02/18/2025 9:24 AM CDT S/P lumbar spine operation POCT GLUCOSE DEVICE Routine 01/09/2025 8 :35 AM CDT POCT GLUCOSE DEVICE Routine 01/08/2025 8 :42 PM CDT POCT GLUCOSE DEVICE Routine 01/08/2025 5 :12 PM CDT POCT GLUCOSE DEVICE Routine 01/08/2025 1 1:46 AM CDT POCT GLUCOSE DEVICE Routine 01/08/2025 9 :50 AM CDT FL FLUOROSCOPY < 1 HOUR IP Routine 01/08/2025 9:03 AM CDT IA AN PROCEDURE PLACEHOLDER Routine 01/08/2025 7:40 AM CDT IA AN ELECTIVE ENDOTRACHEAL AIRWAY Routine 01/08/2025 7:40 AM CDT DECOMPRESSION LUMBAR LAMINECTOMY 01/08/2025 7:21 AM CDT Closed stable burst fracture of lumbar vertebra, unspecified lumbar vertebral level, initial encounter (HCC) Spinal stenosis of lumbar region, unspecified whether neurogenic claudication present Low back pain, non-specific POCT GLUCOSE DEVICE Routine 01/08/2025 6 :09 AM CDT B ABO / RH CONFIRMATION TESTING STAT 01/08/2025 6:08 AM CDT XR HIPS BILATERAL 3 OR 4 VW Schedule Routine, Read Routine (OP Routine) 01/02/2025 8:09 AM CDT Low back pain, non-specific Bilateral hip pain XR SPINE LUMBAR 2 OR 3 VIEWS Schedule Routine, Read Routine (OP Routine) 01/02/2025 8:09 AM CDT Low back pain, non-specific Bilateral hip pain EGFR Routine 12/25/2024 10:35 AM CDT Closed stable burst fracture of lumbar vertebra, unspecified lumbar vertebral level, initial encounter (HCC) Spinal stenosis of lumbar region, unspecified whether neurogenic claudication present Low back pain, non-specific DIFFERENTIAL AUTO Routine 12/25/2024 10: 35 AM CDT Closed stable burst fracture of lumbar vertebra, unspecified lumbar vertebral level, initial encounter (HCC) Spinal stenosis of lumbar region, unspecified whether neurogenic claudication present Low back pain, non-specific ANTIBODY SCREEN Routine 12/25/2024 10:35 AM CDT Closed stable burst fracture of lumbar vertebra, unspecified lumbar vertebral level, initial encounter (HCC) Spinal stenosis of lumbar region, unspecified whether neurogenic claudication present Low back pain, non-specific ABO/RH Routine 12/25/2024 10:35 AM CDT Closed stable burst fracture of lumbar vertebra, unspecified lumbar vertebral level, initial encounter (HCC) Spinal stenosis of lumbar region, unspecified whether neurogenic claudication present Low back pain, non-specific CBC WITH AUTO DIFFERENTIAL Routine 12/25/2024 10:35 AM CDT Closed stable burst fracture of lumbar vertebra, unspecified lumbar vertebral level, initial encounter (HCC) Spinal stenosis of lumbar region, unspecified whether neurogenic claudication present Low back pain, non-specific PROTIME-INR Routine 12/25/2024 10:35 AM CDT Closed stable burst fracture of lumbar vertebra, unspecified lumbar vertebral level, initial encounter (HCC) Spinal stenosis of lumbar region, unspecified whether neurogenic claudication present Low back pain, non-specific APTT Routine 12/25/2024 10:35 AM CDT Closed stable burst fracture of lumbar vertebra, unspecified lumbar vertebral level, initial encounter (HCC) Spinal stenosis of lumbar region, unspecified whether neurogenic claudication present Low back pain, non-specific COMPREHENSIVE METABOLIC PANEL Routine 12/25/2024 10:35 AM CDT Closed stable burst fracture of lumbar vertebra, unspecified lumbar vertebral level, initial encounter (HCC) Spinal stenosis of lumbar region, unspecified whether neurogenic claudication present Low back pain, non-specific TYPE AND SCREEN 14 DAY Routine 12/25/2024 10:35 AM CDT Closed stable burst fracture of lumbar vertebra, unspecified lumbar vertebral level, initial encounter (HCC) Spinal stenosis of lumbar region, unspecified whether neurogenic claudication present Low back pain, non-specific HEMOGLOBIN A1C Routine 12/25/2024 10:35 AM CDT Closed stable burst fracture of lumbar vertebra, unspecified lumbar vertebral level, initial encounter (HCC) Spinal stenosis of lumbar region, unspecified whether neurogenic claudication present Low back pain, non-specific MRSA ONLY (STAPHYLOCOCCUS AUREUS) PCR Routine 12/25/2024 10:35 AM CDT Closed stable burst fracture of lumbar vertebra, unspecified lumbar vertebral level, initial encounter (HCC) Spinal stenosis of lumbar region, unspecified whether neurogenic claudication present Low back pain, non-specific PAIN MGMT IMAGING LUMBAR/SACRAL SELECTIVE NERVE ROOT INJ (TFE) BILATERAL Schedule Routine, Read Routine (OP Routine) 12/01/2024 3:47 PM CDT Neural foraminal stenosis of lumbar spine Radiculopathy, lumbar region POCT GLUCOSE DEVICE Routine 12/01/2024 2 :34 PM CDT from Last 3 Months Results * XR Spine Lumbar 2 Or 3 View (02/18/2025 9:24 AM CDT) Anatomical Region Laterality Modality Spine N/A Computed Radiogr aphy 02/21/2025 4:52 PM CDT Narrative 02/21/2025 4:54 PM CDT EXAM DESCRIPTION: XR SPINE LUMBAR 2 OR 3 VIEWS REASON FOR STUDY: S/P Lumbar foraminotomy Pain in low back and right leg since fall 10-19-24, hx of kyphoplasty T12 and L3 on 10-23-24, L3-4 decompression with foraminotomy on 01-08-25 TECHNIQUE: 3 radiographic view(s) of the lumbar spine. COMPARISON: 01/02/2025. FINDINGS: ALIGNMENT: Stable mild straightening of lordosis. VERTEBRAE: Stable fractures of T12 and L3 with vertebral plasty cement. Slight retro positioning of the posterior vertebral margin at L3 into the spinal canal, stable. DISCS: Stable disc height with mild narrowing most evident at L5-S1. SOFT TISSUES: Within normal limits. Left hip arthroplasty partly visualized. IMPRESSION: Stable appearance of the lumbar spine with vertebral plasty cement at T12 and L3. No new or acute abnormality. THIS IS AN ELECTRONICALLY VERIFIED FINAL REPORT 02/21/2025 4:54 PM - Electronically signed by Shahrzad FERNÁNDEZ T: Report ID: [id number] Reading Location: [place] [address] Procedure Note Laura Riojas MD - 02/21/2025 EXAM DESCRIPTION: XR SPINE LUMBAR 2 OR 3 VIEWS REASON FOR STUDY: S/P Lumbar foraminotomy Pain in low back and right leg since fall 10-19-24, hx of kyphoplasty T12and L3 on 10-23-24, L3-4 decompression with foraminotomy on 01-08-25 TECHNIQUE: 3 radiographic view(s) of the lumbar spine. COMPARISON: 01/02/2025. FINDINGS: ALIGNMENT: Stable mild straightening of lordosis. VERTEBRAE: Stable fractures of T12 and L3 with vertebral plasty cement. Slight retro positioning of the posterior vertebral margin at L3 into the spinal canal, stable. DISCS: Stable disc height with mild narrowing most evident at L5-S1. SOFT TISSUES: Within normal limits. Left hip arthroplasty partly visualized. IMPRESSION: Stable appearance of the lumbar spine with vertebral plastycement at T12 and L3. No new or acute abnormality. THIS IS AN ELECTRONICALLY VERIFIED FINAL REPORT 02/21/2025 4:54 PM - Electronically signed by Shahrzad Riojas M.D. T: Report ID: [id number] Reading Location: [id number] Tera Cope MD IMG XR PROCEDURES Final Result * POCT glucose (01/09/2025 8:35 AM CDT) Glucose, POC 138 70 - 199 mg/dL Glucose comment 1 RN/MD Notified [facility] Blood 01/09/2025 8:35 AM CDT 01/09/2025 8:35 AM CDT Tera Cope MD LAB POCT ORDERABLES - DE VICE Final Result Performing Organization Address [facility] Co de Phone Number [address] [place] [address] * (ABNORMAL) POCT glucose (01/08/2025 8:42 PM CDT) Glucose, POC 207(H) 70 - 199 mg/dL Glucose comment 1 RN/MD Notified [facility] Blood 01/08/2025 8:42 PM CDT 01/08/2025 8:42 PM CDT Tera Cope MD LAB POCT ORDERABLES - DE VICE Final Result Performing Organization Address City/[facility] Co de Phone Number [address] [place] [address] * (ABNORMAL) POCT glucose (01/08/2025 5:12 PM CDT) Glucose, POC 294(H) 70 - 199 mg/dL Glucose comment 1 RN/MD Notified [facility] Blood 01/08/2025 5:12 PM CDT 01/08/2025 5:12 PM CDT Tera Cope MD LAB POCT ORDERABLES - DE VICE Final Result Performing Organization Address [facility] Phone Number MOY [address] [place] [address] * POCT glucose (01/08/2025 11:46 AM CDT) Glucose, POC 164 70 - 199 mg/dL Glucose comment 1 RN/MD Notified [facility] Blood 01/08/2025 11:4 6 AM CDT 01/08/2025 11:46 AM CDT Tera Cope MD LAB POCT ORDERABLES - DE VICE Final Result Performing Organization Address [facility] Phone Number MOY [address] [place] [address] * POCT glucose (01/08/2025 9:50 AM CDT) Glucose, POC 146 70 - 199 mg/dL Blood 01/08/2025 9:50 AM CDT 01/08/2025 9:50 AM CDT Tera Cope MD LAB POCT ORDERABLES - DE VICE Final Result Performing Organization Address [facility] Phone Number MOY [address] [place] [address] * FL Fluoroscopy < 1 Hour (01/08/2025 9:03 AM CDT) Narrative RAYRAY_ELIEL_LEEANNA_MHE - 01/08/2025 12:40 PM CDT The images from this study are not interpreted by Radiology. Please refer to the physician's procedure / OR operative note. Tera Cope MD IMG FLUOROSCOPY PROCEDUR ES Final Result Performing Organization Address [facility] de Phone Number [email or web address] * IA AN ELECTIVE ENDOTRACHEAL AIRWAY, IA AN PROCEDURE PLACEHOLDER (01/08/2025 7:40 AM CDT) Narrative Trini Richard CRNA - 01/08/2025 7:40 AM CDT Trini Richard CRNA 01/08/2025 7:41 AM Airway Patient location: OR Urgency: elective Date/time: 01/08/2025 7:29 AM Indications for airway management: anesthesia Difficult airway: no Staff: Supervising provider: Roshan Zurita MD Placed by: ASSISTANCE COORDINATOR: Trini Richard CRNA Emergent airway documentation: Risks and benefits discussed: yes Consent obtained: yes Consent given by: patient Airway prep: Preoxygenated: yes Patient position: sniffing Mask difficulty assessment: 1 - vent by mask Spontaneous ventilation during airway: absent Sedation level during airway: GA Final airway details: Final airway type: endotracheal airway Tube type: ETT ETT size: 8.0 mm Cuffed: yes Technique used for successful ETT placement: direct laryngoscopy Devices/Methods used in placement: stylet Insertion site: oral Blade type: Flavia Blade size: 4 Cormack-Lehane (direct): grade I - full view of glottis Cuff volume: 8 mL Cuff inflated with: air ETT to teeth: 23 cm Placement verified by: auscultation and CO2 detection Secured with: pink tape. Number of attempts: 1 us Roshan Zurita MD ANESTHESIA ORDERABLES Final Resu lt * POCT glucose (01/08/2025 6:09 AM CDT) Glucose, POC 149 70 - 199 mg/dL Blood 01/08/2025 6:09 AM CDT 01/08/2025 6:09 AM CDT us Tera Cope MD LAB POCT ORDERABLES - DE VICE Final Result MOY [address] [facility] Department of Laboratories [place], [place] [id number] * ABO / Rh Confirmation Testing (01/08/2025 6:08 AM CDT) ABO/Rh Confirmation O Positive [facility] Blood 01/08/2025 6:08 AM CDT 01/08/2025 6:26 AM CDT us Tera Cope MD LAB BLOOD ORDERABLES Fin al Result MOY [facility] [address] [facility] [place] [address] [facility] * XR Hips Bilateral 3 or 4 Views (01/02/2025 8:09 AM CDT) Anatomical Region Laterality Modality Lower Extremities, Hip, Pelvis Bilateral C omputed Radiography 01/03/2025 11:5 5 AM CDT Narrative 01/03/2025 11:57 AM CDT EXAM DESCRIPTION: 1. XR HIPS BILATERAL 3 OR 4 VW; 2. XR SPINE LUMBAR 2 OR 3 VIEWS REASON FOR STUDY: bilateral him pain low back pain Low back pain radiates down both legs R>L x 2 mths, NRI, Hx kyphoplasty done x 2 mths ago FINDINGS: Two views lumbar spine and three views hips submitted with comparison 11/26/2024. Lumbar spine: T12 and L3 cementoplasties are noted. No acute fracture identified. Grade 1 anterolisthesis of L2 on L3, L4 on L5, and retrolisthesis of L3 on L4. Mild L2-L4 and moderate L5-S1 degenerative disc disease. Moderate to severe inferior lumbar facet osteoarthritis. Hips: No acute fracture. Left total hip arthroplasty is in near anatomic alignment. Moderate right hip osteoarthritis. IMPRESSION: 1. Mild L2-L4 and moderate L5-S1 degenerative disc disease with moderate to severe inferior lumbar facet osteoarthritis. 2. Left total hip arthroplasty in near anatomic alignment. 3. Moderate right hip osteoarthritis. THIS IS AN ELECTRONICALLY VERIFIED FINAL REPORT 01/03/2025 11:57 AM - Electronically signed by Antwon Ceja M.D. T: Report ID: [id number] Reading Location: [place] [address] Procedure Note Antwon Ceja MD - 01/03/2025 EXAM DESCRIPTION: 1. XR HIPS BILATERAL 3 OR 4 VW; 2. XR SPINE LUMBAR 2 OR 3 VIEWS REASON FOR STUDY: bilateral him pain low back pain Low back pain radiates down both legs R>L x 2 mths, NRI, Hx kyphoplastydone x 2 mths ago FINDINGS: Two views lumbar spine and three views hips submitted with comparison 11/26/2024. Lumbar spine: T12 and L3 cementoplasties are noted. No acute fracture identified.Grade 1 anterolisthesis of L2 on L3, L4 on L5, and retrolisthesis of L3 on L4.Mild L2-L4 and moderate L5-S1 degenerative disc disease. Moderate to severe inferior lumbar facet osteoarthritis. Hips: No acute fracture. Left total hip arthroplasty is in near anatomicalignment. Moderate right hip osteoarthritis. IMPRESSION: 1. Mild L2-L4 and moderate L5-S1 degenerative disc disease with moderateto severe inferior lumbar facet osteoarthritis. 2. Left total hip arthroplasty in near anatomic alignment. 3. Moderate right hip osteoarthritis. THIS IS AN ELECTRONICALLY VERIFIED FINAL REPORT 01/03/2025 11:57 AM - Electronically signed by Antwon Ceja M.D. T: Report ID: [id number] Reading Location: [place] [address] Tera Cope MD IMG XR PROCEDURES Final Result * XR Spine Lumbar 2 Or 3 View (01/02/2025 8:09 AM CDT) Anatomical Region Laterality Modality Spine N/A Computed Radiogr aphy 01/03/2025 11:5 5 AM CDT Narrative 01/03/2025 11:57 AM CDT EXAM DESCRIPTION: 1. XR HIPS BILATERAL 3 OR 4 VW; 2. XR SPINE LUMBAR 2 OR 3 VIEWS REASON FOR STUDY: bilateral him pain low back pain Low back pain radiates down both legs R>L x 2 mths, NRI, Hx kyphoplasty done x 2 mths ago FINDINGS: Two views lumbar spine and three views hips submitted with comparison 11/26/2024. Lumbar spine: T12 and L3 cementoplasties are noted. No acute fracture identified. Grade 1 anterolisthesis of L2 on L3, L4 on L5, and retrolisthesis of L3 on L4. Mild L2-L4 and moderate L5-S1 degenerative disc disease. Moderate to severe inferior lumbar facet osteoarthritis. Hips: No acute fracture. Left total hip arthroplasty is in near anatomic alignment. Moderate right hip osteoarthritis. IMPRESSION: 1. Mild L2-L4 and moderate L5-S1 degenerative disc disease with moderate to severe inferior lumbar facet osteoarthritis. 2. Left total hip arthroplasty in near anatomic alignment. 3. Moderate right hip osteoarthritis. THIS IS AN ELECTRONICALLY VERIFIED FINAL REPORT 01/03/2025 11:57 AM - Electronically signed by Antwon Ceja M.D. T: Report ID: [id number] Reading Location: [id number] Procedure Note Antwon Ceja MD - 01/03/2025 EXAM DESCRIPTION: 1. XR HIPS BILATERAL 3 OR 4 VW; 2. XR SPINE LUMBAR 2 OR 3 VIEWS REASON FOR STUDY: bilateral him pain low back pain Low back pain radiates down both legs R>L x 2 mths, NRI, Hx kyphoplastydone x 2 mths ago FINDINGS: Two views lumbar spine and three views hips submitted with comparison 11/26/2024. Lumbar spine: T12 and L3 cementoplasties are noted. No acute fracture identified.Grade 1 anterolisthesis of L2 on L3, L4 on L5, and retrolisthesis of L3 on L4.Mild L2-L4 and moderate L5-S1 degenerative disc disease. Moderate to severe inferior lumbar facet osteoarthritis. Hips: No acute fracture. Left total hip arthroplasty is in near anatomicalignment. Moderate right hip osteoarthritis. IMPRESSION: 1. Mild L2-L4 and moderate L5-S1 degenerative disc disease with moderateto severe inferior lumbar facet osteoarthritis. 2. Left total hip arthroplasty in near anatomic alignment. 3. Moderate right hip osteoarthritis. THIS IS AN ELECTRONICALLY VERIFIED FINAL REPORT 01/03/2025 11:57 AM - Electronically signed by Antwon Ceja M.D. T: Report ID: [id number] Reading Location: [id number] us Tera Cope MD IMG XR PROCEDURES Final Result * eGFR (12/25/2024 10:35 AM CDT) eGFR >90 >=60 mL/min/1. 73 m2 Comment: Interpretive Data Reference Interval Normal >/= 90 mL/min/1.73m2 Mildly decreased* 60 - 89 mL/min/1.73m2 Mildly to moderately decreased 45 - 59 mL/min/1.73m2 Moderately to severely decreased 30 - 44 mL/min/1.73m2 Severely decreased 15 - 29 mL/min/1.73m2 Kidney Failure < 15 mL/min/1.73m2 *Relative to young adult level Estimated glomerular filtration rate is determined by the 2020 CKD-EPI equation recommended by the National Kidney Foundation (A Unifying Approach to GFR Estimation: Recommendations of the NKF-ASK Task Force on Reassessing the Inclusion of Race in Diagnosing Kidney Disease, JASN 2020). The CKD-EPI equation should not be used for patients with unstable renal function and has not been validated in children and those over 70. Current interpretive data was last reviewed 2021. Blood 12/25/2024 10:3 5 AM CDT 12/25/2024 10:40 AM CDT us Tera Cope MD LAB BLOOD ORDERABLES [facility] al Result [facility] [address] [facility] [place] [address] * Differential, auto (12/25/2024 10:35 AM CDT) Neutrophil abs 5.38 1.50 - 6.50 K/cumm Imm gran abs 0.03 0.00 - 0.10 K/cumm [facility] Lymphocyte abs 2.93 0.80 - 3.30 K/cumm [facility] Monocyte abs 0.65 0.20 - 0.80 K/cumm [facility] Eosinophil abs 0.33 0.00 - 0.50 K/cumm [facility] Basophil abs 0.10 0.00 - 0.10 K/cumm [facility] Neutrophil pct 57.1 % [facility] Comment: Interpretive Data Percent cell count reference ranges are not reported, since discordance with absolute values may lead to misinterpretation of CBC data. Current Interpretive Data was last revised on 2017. Imm gran pct 0.3 % [facility] Comment: Interpretive Data Percent cell count reference ranges are not reported, since discordance with absolute values may lead to misinterpretation of CBC data. Current Interpretive Data was last revised on 2017. Lymphocyte pct 31.1 % [facility] Comment: Interpretive Data Percent cell count reference ranges are not reported, since discordance with absolute values may lead to misinterpretation of CBC data. Current Interpretive Data was last revised on 2017. Monocyte pct 6.9 % [facility] Comment: Interpretive Data Percent cell count reference ranges are not reported, since discordance with absolute values may lead to misinterpretation of CBC data. Current Interpretive Data was last revised on 2017. Eosinophil pct 3.5 % [facility] Comment: Interpretive Data Percent cell count reference ranges are not reported, since discordance with absolute values may lead to misinterpretation of CBC data. Current Interpretive Data was last revised on 2017. Basophil pct 1.1 % [facility] Comment: Interpretive Data Percent cell count reference ranges are not reported, since discordance with absolute values may lead to misinterpretation of CBC data. Current Interpretive Data was last revised on 2017. Blood 12/25/2024 10:3 5 AM CDT 12/25/2024 10:40 AM CDT us Tera Cope MD LAB BLOOD ORDERABLES Fin al Result [facility] [address] [facility] [place] [address] * (ABNORMAL) CBC with auto differential (12/25/2024 10:35 AM CDT) Pathologist [facility] WBC 9.42 3.80 - 9.90 K/cumm Hgb 16.4 13.0 - 17.5 g/dL [facility] Hct 47.7 38.9 - 50.3 % [facility] Plt 204 150 - 400 K/cumm [facility] MPV 8.8(L) 9.1 - 12.3 fL [facility] RBC 4.94 4.30 - 5.80 M/cumm [facility] MCV 96.6(H) 81.3 - 96.4 fL [facility] MCH 33.2 27.1 - 33.3 pg [facility] MCHC 34.4 32.3 - 35.7 g/dL [facility] RDW CV 12.8 11.1 - 14.9 % [facility] RDW SD 45.6 35.7 - 48.1 fL [facility] NRBC abs 0.00 0.00 - 0.01 K/cumm [facility] Blood 12/25/2024 10:3 5 AM CDT 12/25/2024 10:40 AM CDT Tera Cope MD LAB BLOOD ORDERABLES Fin al Result Performing Organization Address [facility] Co de Phone Number [address] [place] [address] * MRSA Only (Staphylococcus aureus) PCR Nasal (12/25/2024 10:35 AM CDT) PCR Scrn, Methicillin resistant Staphylococcus aureus (MRSA) Not Detected Not Detected Comment: Interpretive Data Testing performed using Nucleic Acid Amplification with the CISSOID Xpert MRSA NxG Assay. This assay detects target DNA from mecA, mecC and the SCCmec insertion site of Staphylococcus aureus using Real-Time PCR and has been cleared by the FDA. Performance characteristics have been verified by the [facility]. Current Interpretive Data was last revised on 2023 Nasal 12/25/2024 10:3 5 AM CDT 12/25/2024 10:40 AM CDT Tera Cope MD LAB MICROBIOLOGY - GENER AL ORDERABLES Final Result Performing Organization Address [facility] Co de Phone Number [address] [place] [address] * ABO/Rh (12/25/2024 10:35 AM CDT) ABO/Rh O Positive Blood 12/25/2024 10:3 5 AM CDT 12/25/2024 10:40 AM CDT Narrative MOY - 12/25/2024 11:28 AM CDT Is this test being ordered in advance for a procedure?->Yes Expected date of procedure:->01/08/25 Has the patient been transfused in the past 3 months?->No Tera Cope MD LAB BLOOD BANK TEST ROLANDO TINAJERO Final Result Performing Organization Address [facility] de Phone Number [address] [place] [address] * aPTT (12/25/2024 10:35 AM CDT) aPTT 27 22 - 37 sec Comment: Interpretive data aPTT test has not been evaluated for monitoring heparin therapy. The anti-Xa is the preferred test. Current interpretive data was last revised on 2019. Blood 12/25/2024 10:3 5 AM CDT 12/25/2024 10:40 AM CDT Tera Cope MD LAB BLOOD ORDERABLES Fin al Result Performing Organization Address [facility] de Phone Number [address] [address] * (ABNORMAL) Protime-INR (12/25/2024 10:35 AM CDT) PT 12.00 12.00 - 14.60 sec INR 0.88(L) 0.90 - 1.20 MOY Comment: Interpretive data Oral anticoagulant therapeutic ranges: Venous thromboembolism prophylaxis or treatment: 2.0-3.0 CARDIOLOGY Standard range: 2.0-3.0 High-intensity range: 2.5-3.5 Refer to indication-specific guidelines for appropriate target ranges for prosthetic heart valve replacement. Current interpretive data was last revised on 2019. Blood 12/25/2024 10:3 5 AM CDT 12/25/2024 10:40 AM CDT Tera Cope MD LAB BLOOD ORDERABLES Fin al Result Performing Organization Address [facility] Co de Phone Number [address] [address] * Antibody screen (12/25/2024 10:35 AM CDT) Pathologist [facility] Rafal, indirect, Gel Interpretation Negative ABSC Blood 12/25/2024 10:3 5 AM CDT 12/25/2024 10:40 AM CDT Narrative [facility] - 12/25/2024 11:28 AM CDT Is this test being ordered in advance for a procedure?->Yes Expected date of procedure:->01/08/25 Has the patient been transfused in the past 3 months?->No Tera Cope MD LAB BLOOD BANK TEST ORDE RABLES Final Result Performing Organization Address [facility] de Phone Number [address] [address] * (ABNORMAL) Hemoglobin A1c (12/25/2024 10:35 AM CDT) Pathologist [facility] Hgb A1C 9.1(H) 4.0 - 5.6 % Estimated Average Glucose 214 mg/dL [facility] Comment: The ADA recommends reporting an estimated Average Glucose (eAG) with all Hemoglobin A1c results using the equation derived from a study of 507 normal and diabetic adults. Minority populations were underrepresented and children were not included. (Diabetes Care 31:4250-9383, 2008). The eAG is not equivalent to a fasting glucose. Blood 12/25/2024 10:3 5 AM CDT 12/25/2024 10:40 AM CDT Tera Cope MD LAB BLOOD ORDERABLES Fin al Result Performing Organization Address [facility] Co de Phone Number [address] [address] * (ABNORMAL) Comprehensive metabolic panel (12/25/2024 10:35 AM CDT) Pathologist [facility] Sodium 137 135 - 145 mmol/L Potassium, pl 4.4 3.3 - 4.9 mmol/L [facility] Chloride 102 97 - 110 mmol/L [facility] CO2 25 22 - 32 mmol/L [facility] Anion gap 10 2 - 15 mmol/L [facility] BUN 9 6 - 25 mg/dL [facility] Creatinine 0.76(L) 0.80 - 1.30 mg/dL [facility] Glucose 85 70 - 199 mg/dL [facility] Comment: Interpretive Data Fasting glucose >/= 126 mg/dl is diagnostic for diabetes. Fasting is defined as no caloric intake for at least 8 hours. Fasting glucose between 100 mg/dl to 125 mg/dl is diagnostic of prediabetes. In a patient with classic symptoms of hyperglycemia or hyperglycemic crisis, a random glucose >/= 200 mg/dl is diagnostic for diabetes. In the absence of unequivocal hyperglycemia, results should be confirmed by repeat testing. The classification and Diagnosis of Diabetes Diabetes Care 2021; 46: S19-S40. Current interpretive data was last revised 2022. Calcium 9.6 8.5 - 10.3 mg/dL [facility] Bilirubin, total 0.4 0.1 - 1.2 mg/dL [facility] Protein, pl 7.2 6.5 - 8.5 g/dL [facility] Albumin 3.9 3.5 - 5.0 g/dL [facility] Alk phos 114 40 - 130 Units/L [facility] ALT 14 7 - 55 Units/L [facility] AST 18 10 - 50 Units/L [facility] Blood 12/25/2024 10:3 5 AM CDT 12/25/2024 10:40 AM CDT us Tera Cope MD LAB BLOOD ORDERABLES Fin al Result [facility] [address] [facility] [place] [address] * Imaging Lumbar/Sacral Selective Nerve Root INJ (TFE) Bilateral ([id number]) (12/01/2024 3:47 PM CDT) Narrative RAYRAY_[email or web address]_MHE - 12/01/2024 3:58 PM CDT The images from this study are not interpreted by Radiology. Please refer to the physician's procedure / OR operative note. Hillary Tam MD IMG PAIN MGMT PROCEDURES Final R esult Performing Organization Address [facility] Co de Phone Number [email or web address] * POCT glucose (12/01/2024 2:34 PM CDT) Glucose, POC 169 70 - 199 mg/dL Blood 12/01/2024 2:34 PM CDT 12/01/2024 2:34 PM CDT Hillary Tam MD LAB POCT ORDERABLES - DEVICE Fin al Result Performing Organization Address [facility] Co de Phone Number [facility] [address] [facility] Department of Laboratories [place] [phone] from Last 3 Months Insurance [facility] [facility]PPO Address: [facility] [address] [place] [address] [employer] [facility] H[facility]/PPO Address: [address] [address] [place] [address] WORKERS COMPENSATION GENERIC Advance Directives For more information, please contact: [phone] * Full Code (Latest Code Status on File) Date Activated Date Inactivated Comments 01/08/2025 11:30 AM 01/09/2025 3:35 PM * Full Code Date Activated Date Inactivated Comments 10/19/2024 10:33 PM 10/24/2024 4:52 PM Care Teams Faculty I On Call Medical Assistant Relationship Specialty Start Date End Date Ivan Farley MD [facility] [facility] [address] [place] [address] PCP - General Family Medicine 12/29/24 Javier Lima MD [facility] [facility] [address] Consulting Physician Internal Medicine 10/23/24 Hillary Tam MD [facility] [facility] [address] [place] [address] Consulting Physician Pain Management 11/04/24
--- OUTSIDE RECORDS SUMMARY | 2025-03-02 15:09 | XMS_ITS | Clinical Summary ---
Author Organization [facility] Address [address] [place] [address] Care Team Providers Care Negative Notcher Name Role Phone Cameron Dorman MD Primary Care Provider [phone] Source Comments [facility],non-owned Affiliates and Associated Physician Practices is amultiple site organization consisting of ambulatory clinics and hospital sitesin [place], [place], [place] and [place]. This disclosure is being madepursuant to the Care Everywhere program and may not contain all information available regarding this patient. Last updated 18.[facility] [place] Social History Tobacco Use Types Packs/Day Years Used Date Smoking Tobacco: Every Day Cigarettes Alcohol Use Standard Drinks/Week Comments Yes 0 (1 standard drink = 0.6 oz pur e alcohol) Sex and Gender Information Value Date Recorded Sex Assigned at Not on file Legal Sex Male 6:50 PM [employer] Gender Identity Not on file Sexual Orientation [...] Tdap) 10/01/1982 PNEUMOCOCCAL VACCINE 50+ (1 of 1 - PCV) 10/01/2013 ZOSTER VACCINE (1 of 2) 10/01/2013 DEPRESSION SCREENING 05/21/2024 COVID-19 VACCINE (1 - 2023-2 5 season) 2025 INFLUENZA VACCINE (#1) 2025 Respiratory Syncytial Virus (RSV) Vaccine Pt: or [...] to complete this topic MENINGOCOCCAL (Group B) VACC INE SHARED DECISION-MAKING Aged Out No longer eligibl e based on patient's age to complete this topic MENINGOCOCCAL GROUPS A/C/Y/W VACCINE Aged Out No longer eligible b ased on patient's age to complete this topic Care Teams Negative Notcher Relationship Specialty Start Date End Date Cameron Dorman MD [address] [place] [address] PCP - General 07/11/11
--- OUTSIDE RECORDS SUMMARY | 2025-03-02 15:09 | XMS_ITS | Clinical Summary ---
Author Organization [facility] Address [address] [place] [address] Phone Care Team Providers Care Welder Apprentice Combination Name Role Phone Antwon Swann MD Primary Care Provider [phone] Allergies No known active allergies Medications naproxen (NAPROSYN) 500 mg tablet Take 500 mg by mouth 2 times daily. 3 Active acetaminophen (TYLENOL) 325 mg tablet Take 2 Tablets (650 mg) by mouth every 6 hours. 5 Active gabapentin (NEURONTIN) 100 mg capsule Take 2 Capsules (200 mg) by mouth every 8 hours. 30 Capsule 10/04/2024 2:31 PM CDT 5 Active methocarbamoL (ROBAXIN) 500 mg tablet Take 1 Tablet (500 mg) by mouth every 8 hours. 30 Tablet 10/04/2024 2:31 PM CDT 5 Active oxyCODONE (ROXICODONE) 5 mg tabletIndication s:ICB (intracranial bleed) (CMS/HCC),Closed fracture of multiple ribs of both sides, initial encounter,Trauma tic compression fracture of L3 lumbar vertebra, closed, initial encounter (CMS/HCC),Fall, initial encounter Take 1 Tablet (5 mg) by mouth every 6 hours as needed for Pain. Max Daily Amount: 20 mg 20 Tablet 10/04/2024 2:31 PM CDT 5 Active Active Problems Problem Noted Date Diagnosed Date ICB (intracranial bleed) 2024 Type 2 diabetes mellitus with hyperglycemia 09/18 Acute pulmonary edema 10/01/2024 Fall 09/30/2024 Lumbar transverse process fr acture, closed, initial encounter 09/30/2024 Closed fracture of transverse process of thoraci c vertebra 09/30/2024 Closed stable burst fracture of third lumbar jil tebra 09/30/2024 Closed fracture of multiple ribs of both sides 0 09/30/2024 Acute pain 09/30/2024 Traumatic brain injury 09/30/2024 Closed fracture of eleventh thoracic vertebra Acute hyponatremia 09/30/2024 Closed traumatic compression fracture of lumbar vertebra 09/30/2024 Encounters Date Type Department Care Team Description 02/24/2025 External Device Data [facility] ABSTRACTION Provider, Abstract 02/10/2025 External Device Data [facility] ABSTRACTION Provider, Abstract 12/30/2024 External Device Data [facility] ABSTRACTION Provider, Abstract 12/30/2024 External Device Data [facility] ABSTRACTION Provider, Abstract 12/24/2024 External Device Data [facility] ABSTRACTION Provider, Abstract from Last 3 Months Social History Tobacco Use Types Packs/Day Years Used Date Smoking Tobacco: Some Days Cigarettes Tobacco Cessation:Ready to Q uit: Not Asked; Counseling Given: Not Answered Alcohol Use Standard Drinks/Week Comments Not Currently 0 (1 standard drink = 0.6 oz pur e alcohol) Feeling Safe Answer Date Recorded Are you in a relationship wi th someone who hurts you emotionally and/or physically? No 09/30/2024 Food Insecurity Answer Date Recorded Patient needs follow up regardin 09/30/2024 Transportation Needs Answer Date Record ed Patient needs follow up regardin 09/30/2024 Utility Needs Answer Date Recorded Patient needs follow up regardin 09/30/2024 Sex and Gender Information Value Date Recorded Sex Assigned at Not on file Legal Sex Male 3:18 PM CDT Gender Identity Not on file Sexual Orientation Not on file Last Filed Vital Signs Vital Sign Reading Time Taken Comments Blood Pressure 129/88 10/04/2024 10:19 AM CDT Pulse 84 10/04/2024 10:19 AM CDT Temperature 36.8 C (98.2 F) 10/04/2024 4:08 AM CDT Respiratory Rate 18 10/04/2024 10:19 AM CDT Oxygen Saturation 94% 10/04/2024 10:19 AM CDT Inhaled Oxygen Concentration - - Weight 84.9 kg (187 lb 3.2 oz) 10/04/2024 2:18 P M CDT Height 182.9 cm (6') 09/30/2024 9:15 PM CDT Body Mass Index 25.39 09/30/2024 9:15 PM CDT Plan of Treatment Health Maintenance Due Date Last Done Comments DIABETES ANNUAL FOOT EXAM 10/01/1981 DIABETES ANNUAL RETINAL EXAM 10/01/1981 DIABETES MICROALBUMIN ANNUAL SCREEN 10/01/1981 LDL CHOLESTEROL ANNUAL 10/01/1981 DTAP/TDAP/TD VACCINES (1 - Tdap) 10/01/1982 COLORECTAL SCREENING 10/01/2008 Colorectal Cancer Screening 10/01/2008 FIT-DNA Q 3 years 10/01/2008 FIT/FOBT Q 1 year 10/01/2008 Flex Sig/CT Colonography Q 5 years 10/01/2008 ZOSTER VACCINE (1 of 2) 10/01/2013 INFLUENZA VACCINE (#1) 2024 DIABETES HBA1C Q 6 MONTHS 04/02/2025 09/30/2024 RSV VACCINE (60+ or ) (1 - 1-dose 75+ series) 10/01/2038 Procedures Procedure Name Priority Date/Time Associated Diagnosis Comments HEMOGLOBIN A1C Stat 09/30/2024 4:17 PM CDT from Last 3 Months or Most Recently Relevant to Health Maintenance Results * (ABNORMAL) HEMOGLOBIN A1C (09/30/2024 4:17 PM CDT) HEMOGLOBIN A1C 12.2(H) <=5.6 % 09/30/2024 9:49 PM CDT [facility] EST. AVG GLUCOSE, A1C 303 mg/dL 09/30/2024 9:49 PM CDT [facility] Blood Venipuncture / Unknown 09/30/2024 4:17 PM CDT 09/30/2024 4:28 PM CDT Narrative [facility] - 09/30/2024 9:49 PM CDT HGB A1C INTERPRETATION NORMAL: <5.7% PRE-DIABETES: 5.7 - 6.4% DIABETES: 6.5% OR GREATER [facility] CHEMISTRY ORDERABLES Final Result [facility]# [id number] [place] [address] from Last 3 Months or Most Recently Relevant to Health Maintenance Insurance [employer] [id number] [employer] (INTERNAL) [facility] [employer] [facility] [place] Advance Directives For more information, please contact: [phone] * Full Code (Latest Code Status on File) Date Activated Date Inactivated Comments 09/30/2024 6:31 PM 10/04/2024 5:35 PM Care Teams Welder Apprentice Combination Relationship Specialty Start Date End Date Antwon Swann MD [address] [place] [address] PCP - General Internal Medicine 10/01/24
--- OUTSIDE RECORDS SUMMARY | 2025-03-02 15:09 | XMS_ITS | Clinical Summary ---
Author Organization [facility] Address [address] [place] [id number] Care Team Providers Care Clothing Examiner Name Role Phone Unavailable Primary Care Provider [...] Td Vaccines ( 1 - Tdap) 10/01/1982 Pneumococcal Vaccine: 50+ Ye ars (1 of 1 - PCV) 10/01/2013 Zoster Vaccines (1 of 2) 10/01/2013 COVID-19 Vaccine (1 - 2023-2 5 season) 2025 Influenza Adult (#1) 2025 RSV Immunization or 60+ Years (1 - [...]
--- OUTSIDE RECORDS SUMMARY | 2025-03-02 15:09 | XMS_ITS | Encounter Summary ---
Author Organization [facility] Address [address] [place] [address] Care Team Providers Care Manager Resort Name Role Phone Javier Lima MD Unavailable [phone] Hillary Tam MD Unavailable Ivan Farley MD Primary Care Provider [phone] Encounter Details Date Type Department Care Team (Late st Contact Info) Description 11/18/2024 Documentation [facility] Pain Mgmt [address] [place] [address] Deann Martinez RN Social History Tobacco Use Types Packs/Day Years Used Date Smoking Tobacco: Every Day Cigarettes 0.8 35.4 Started: 10/1989 [facility] Utilities Answer Date Recorded In the past 12 months has e electric, gas, oil, or water company threatened to shut off services in your home? No 10/20/2024 Social Connection and Isolation Panel Answer Date Recorded In a typical week, how many times do you talk on the phone with family, friends, or neighbors? Three times a week 10/20/2024 How often do you get togethe r with friends or relatives? Three times a week 10/20/2024 How often do you attend chur ch or faith services? Never 10/20/2024 Do you belong to any clubs o r organizations such as nondenominational groups, unions, fraternal or athletic groups, or school groups? No 10/20/2024 How often do you attend meet ings of the clubs or organizations you belong to? Never 10/20/2024 Are you , , di vorced, , never , or living with a partner? 10/20/2024 AUDIT-C Answer Date Recorded Q1: How often do you have a drink containing alcohol? 4 or more times a week 10/23/2024 Q2: How many drinks containi ng alcohol do you have on a typical day when you are drinking? 1 or 2 Q3: How often do you have si x or more drinks on one occasion? Less than monthly 10/23/2024 Overall Financial Resource Strain (CARDIA) Answe r Date Recorded How hard is it for you to pa y for the very basics like food, housing, medical care, and heating? Not hard at all 10/20/2024 Hunger Vital Sign Answer Date Recorded Within the past 12 months, y ou worried that your food would run out before you got the money to buy more. Never true 10/21/19 25 Within the past 12 months, t he food you bought just didn't last and you didn't have money to get more. Never true 10/20/2024 PRAPARE - Transportation Answer Date Re corded In the past 12 months, has l ack of transportation kept you from medical appointments or from getting medications? No 06/2024 In the past 12 months, has l ack of transportation kept you from meetings, work, or from getting things needed for daily living? No 10/20/2024 Housing Stability Vital Sign Answer Dilshad e Recorded In the last 12 months, was t here a time when you were not able to pay the mortgage or rent on time? No 10/20/2024 In the past 12 months, how m any times have you moved where you were living? 0 10/20/2024 At any time in the past 12 m [facility], were you homeless or living in a usp (including now)? No 10/20/2024 Personal Safety Answer Date Recorded Have you ever been in or are you currently in a harmful physical or emotional relationship or is someone making you feel afraid or unsafe? Denies 11/02/2024 Sex and Gender Information Value Date Recorded Sex Assigned at Not on file Legal Sex Male 8:14 AM CDT Gender Identity Not on file Sexual Orientation Not on file documented as of this encounter Plan of Treatment Not on file documented as of this encounter Visit Diagnoses Not on filedocumented in this encounter Care Teams Manager Resort Relationship Specialty Start Date End Date Ivan Farley MD [address] [place] [address] [place] [id number] PCP - General Family Medicine 12/29/24 Javier Lima MD [address] [place] [address] Consulting Physician Internal Medicine 10/23/24 Hillary Tam MD [address] [place] [id number] Consulting Physician Pain Management 11/04/24 documented as of this encounter
== END 2025-03-02 13:51 | disposition home or self-care (01) ==
DX: M47.816 Spondylosis without myelopathy or radiculopathy, lumbar region (principal); Z98.890 Other specified postprocedural states
CPT/HCPCS: 72131